=== PATIENT | female | born 1960 | race Caucasian/White ===

== ENCOUNTER 2016-10-28 07:22 | Emergency (ER) | payer OTHER, BC ==
[2016-10-28] MEDS ORDERED: HYDROmorphone 0.5 MG/0.5 ML Syringe IVPUSH ONE (07:39)
[2016-10-28] MEDS ORDERED: Metoclopramide 10 MG/2 ML SDV IVPUSH ONE (07:40)
[2016-10-28] MEDS ORDERED: Hyoscyamine 0.125 MG Tab.SL SL ONE (07:41)
[2016-10-28] MEDS ORDERED: Hyoscyamine 0.125 MG Tab.SL ONE (07:42)
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
[2016-10-28] MEDS ORDERED: Sodium Chloride 0.9% 1,000 ML IV SCH (07:45)
--- NOTE | 2016-10-28 09:36 | US ---
Limited abdominal ultrasound: Multiple real-time images of the upper right abdomen were obtained. Comparison: No previous abdominal imaging. Technologist's note: Limited exam due to bowel gas Findings: Liver is slightly echogenic possibly due to mild fatty infiltration. No discrete focal abnormality is seen within the liver. Pancreas is incompletely seen. Visualized portions of the pancreas are unremarkable. Gallbladder not well seen, questionable gallstones/sludge balls noted within the dependent portion of the gallbladder. Gallbladder wall appears prominent in size but gallbladder is not well distended. No biliary duct dilatation is appreciated. Right kidney shows no hydronephrosis or mass. Right kidney has a length of 11.3 cm. Impression: 1. Suboptimal evaluation of the gallbladder. Questionable wall thickening and gallstones/sludge balls. No biliary duct dilatation is seen. Follow-up study would be helpful after adequate 8 hours of fasting to further evaluate. 2. Questionable fatty infiltration within the liver. Diagnostic code #3
--- NOTE | 2016-10-28 10:47 | CR ---
Abdomen: Supine view of the abdomen was obtained. Comparison: No previous abdominal x-ray. Inferior vena cava filter is identified. Bowel gas pattern is normal. No abnormal calcifications or discrete soft tissue abnormality is seen. Bony structures are unremarkable. Impression: 1. Inferior vena cava filter. 2. Supine abdominal x-ray is otherwise unremarkable. Diagnostic code #2
[2016-10-28 11:21] VITALS: BP 99/63
== END 2016-10-28 10:32 | disposition home or self-care (01) ==
LOC: JD.ED 07:22
DX: K80.20 Calculus of gallbladder without cholecystitis without obstruction (principal); Z88.1 Allergy status to other antibiotic agents; Z79.899 Other long term (current) drug therapy; K21.9 Gastro-esophageal reflux disease without esophagitis
CPT/HCPCS: 36415; 74000; 76705; 80053; 81001; 83690; 85025; 85610; 86140; 96361; 96374; 96375; 99284; A9270; J1170; J2765; J7040

== ENCOUNTER 2017-07-01 07:42 | Emergency (ER) | payer OTHER, BC ==
[2017-07-01 07:58] VITALS: BP 147/97
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
== END 2017-07-01 08:35 | disposition home or self-care (01) ==
LOC: JD.ED 07:42
DX: K80.50 Calculus of bile duct without cholangitis or cholecystitis without obstruction (principal); Z88.1 Allergy status to other antibiotic agents
CPT/HCPCS: 99284

== ENCOUNTER 2021-04-12 12:09 | Emergency (ER) | payer BC, OTHER ==
[2021-04-12] MEDS ORDERED: Albuterol 6.7 GM Inhaler INH ONE (12:45)
[2021-04-12] MEDS ORDERED: Ondansetron 4 MG Tab.DIS PO ONE (12:45)
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
[2021-04-12 13:33] VITALS: BP 136/91; PULSE 63
--- NOTE | 2021-04-12 13:55 | CR ---
Chest: Frontal view of the chest was obtained. Comparison: Prior chest x-ray of 09/07/16. Right hemidiaphragm is elevated which is a chronic finding. Heart size and mediastinum are normal. Previous right shoulder surgery is seen. Patchy areas of increased density are seen within both sides of the chest. Bony structures show nothing acute. Impression: 1. Chronic findings as noted above. 2. Patchy increased density within both sides of the chest compatible with mild COVID pneumonia. Diagnostic code #3
== END 2021-04-12 15:14 | disposition home or self-care (01) ==
LOC: JD.ED 12:09
DX: U07.1 COVID-19 (principal); Z88.1 Allergy status to other antibiotic agents; Z86.718 Personal history of other venous thrombosis and embolism
CPT/HCPCS: 71045; 94640; 99284; A9270; 99283

== ENCOUNTER 2021-04-14 21:41 | Inpatient (IN) | payer OTHER ==
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
[2021-04-15] MEDS ORDERED: Doxycycline 100 MG Cap PO ONE (06:53)
[2021-04-15] MEDS ORDERED: Dexamethasone 4 MG/ML 5 ML MDV IV ONE (06:53)
[2021-04-15] MEDS ORDERED: REMDESIVIR 200 MG in Sodium Chloride 0.9% 250 ML IV ONE ×2 (06:57→07:30)
[2021-04-15] MEDS ORDERED: cefTRIAXone 2 GM in Sodium Chloride 0.9% 100 ML IV SCH (07:00)
--- NOTE | 2021-04-15 07:41 | CR ---
Chest: Frontal view of the chest was obtained. Comparison: Prior chest x-ray of 04/12/21 and 09/07/16. Blunting of the right lateral costophrenic angle is noted which is stable. Slight areas of increased density are noted within both lungs which appear fairly stable from most recent exam most likely representing mild chronic COVID pneumonia. Slight increased atelectasis is seen within the right midlung. Lungs otherwise are clear. Heart size is normal. Upper mediastinum is within normal limits. Bony structure shows prior surgery within the right shoulder. Impression: 1. Stable areas of probable COVID pneumonia within both lungs. 2. Slight increased atelectasis within the right midlung. 3. Other findings as noted above which are chronic. Diagnostic code #3
[2021-04-15] MEDS ORDERED: Ondansetron 4 MG/2 ML SDV IVPUSH PRN (08:34)
[2021-04-15] MEDS ORDERED: Docusate Sodium 100 MG Cap PO PRN (08:44)
[2021-04-15] MEDS ORDERED: Potassium Chloride 20 MEQ Tab.ER PO ONE (08:56)
[2021-04-15] MEDS ORDERED: Azithromycin 500 MG in Sodium Chloride 0.9% 250 ML IV SCH (09:00)
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
[2021-04-15] MEDS: Zinc Sulfate 220 MG Cap PO SCH (09:58)
[2021-04-15] MEDS: Famotidine 20 MG Tab PO SCH ×2 (09:59→20:10)
[2021-04-15] MEDS: Enoxaparin 40 MG/0.4 ML Syringe SUBCUT SCH (09:59)
[2021-04-15] MEDS ORDERED: Benzonatate 100 MG Cap PO PRN (10:38)
[2021-04-15] MEDS: Albuterol 6.7 GM Inhaler INH PRN ×2 (14:47→20:25)
[2021-04-15] MEDS: guaiFENesin 600 MG Tab.ER PO SCH ×2 (16:37→20:10)
[2021-04-15] MEDS: Cholecalciferol (Vitamin D3) 5,000 UNIT Cap PO SCH (16:37)
[2021-04-15] MEDS: Doxycycline 100 MG in Sodium Chloride 0.9% 100 ML IV SCH (20:10)
[2021-04-16] MEDS: cefTRIAXone 2 GM in Sodium Chloride 0.9% 100 ML IV SCH (06:15)
[2021-04-16] MEDS: REMDESIVIR 100 MG in Sodium Chloride 0.9% 100 ML IV SCH (06:54)
[2021-04-16] MEDS ORDERED: cefTRIAXone 2 GM in Sodium Chloride 0.9% 100 ML IV SCH (07:00)
[2021-04-16] MEDS: Albuterol 6.7 GM Inhaler INH PRN ×3 (07:55→20:11)
--- NOTE | 2021-04-16 08:49 | PCM.PN ---
- General Info Date of Service: 04/16/21 Admission Dx/Problem (Free Text): Admission Diagnosis/Problem Admission Diagnosis/Problem Hypoxia Functional Status: Reports: Pain Controlled, Tolerating Diet, Ambulating, Urinating, Incentive Spirometry, Other (Acapella ). Denies: New Symptoms - Review of Systems General: Reports: Weakness. Denies: Fever, Fatigue, Malaise, Chills HEENT: Reports: No Symptoms. Denies: Headaches, Sore Throat Pulmonary: Reports: Shortness of Breath, Pleuritic Chest Pain, Cough, Sputum. Denies: Wheezing Cardiovascular: Reports: Dyspnea on Exertion. Denies: Chest Pain, Palpitations, Edema Gastrointestinal: Reports: No Symptoms. Denies: Abdominal Pain, Constipation, Diarrhea, Nausea, Vomiting Genitourinary: Reports: No Symptoms. Denies: Pain Musculoskeletal: Reports: No Symptoms Skin: Reports: No Symptoms Neurological: Reports: Weakness. Denies: Confusion, Dizziness, Headache, Numbness, Pre-Existing Deficit, Syncope, Tingling, Difficulty Walking, Gait Disturbance Psychiatric: Reports: No Symptoms - Patient Data Vitals - Most Recent: Last Vital Signs Temp 98.4 F 04/16/21 06:12 Pulse 87 04/16/21 06:12 Resp 22 H 04/16/21 06:12 BP 109/54 L 04/16/21 06:12 Pulse Ox 92 L 04/16/21 07:56 Weight - Most Recent: 209 lb 12.8 oz I&O - Last 24 Hours: Intake & Output 04/15/21 04/16/21 04/16/21 22:59 06:59 14:59 Intake Total 750 898 Output Total 1000 Balance -250 898 Lab Results Last 24 Hours: Laboratory Results - last 24 hr 04/15/21 04/15/21 04/15/21 Range/Units 02:18 07:23 07:23 WBC (3.98-10.04) K/mm3 RBC (3.98-5.22) M/mm3 Hgb (11.2-15.7) gm/dl Hct (34.1-44.9) % MCV (79.4-94.8) fl MCH (25.6-32.2) pg MCHC (32.2-35.5) g/dl RDW Std Deviation (36.4-46.3) fL Plt Count (182-369) K/mm3 MPV (9.4-12.3) fl Neut % (Auto) (34.0-71.1) % Lymph % (Auto) (19.3-51.7) % Coffey % (Auto) (4.7-12.5) % Eos % (Auto) (0.7-5.8) Baso % (Auto) (0.1-1.2) % Neut # (Auto) (1.56-6.13) K/mm3 Lymph # (Auto) (1.18-3.74) K/mm3 Coffey # (Auto) (0.24-0.36) K/mm3 Eos # (Auto) (0.04-0.36) K/mm3 Baso # (Auto) (0.01-0.08) K/mm3 Manual Slide Review Sodium (136-145) mEq/L Potassium (3.5-5.1) mEq/L Chloride (98-107) mEq/L Carbon Dioxide (21-32) mEq/L Anion Gap (5-15) BUN (7-18) mg/dL Creatinine (0.55-1.02) mg/dL Est Cr Clr Drug Dosing mL/min Estimated GFR (MDRD) (>60) mL/min BUN/Creatinine Ratio (14-18) Glucose (70-99) mg/dL Lactic Acid (0.4-2.0) mmol/L Calcium (8.5-10.1) mg/dL Magnesium 2.1 (1.8-2.4) mg/dL Total Bilirubin (0.2-1.0) mg/dL AST (15-37) U/L ALT (14-59) U/L Alkaline Phosphatase (46-116) U/L C-Reactive Protein (<1.0) mg/dL Total Protein (6.4-8.2) g/dl Albumin (3.4-5.0) g/dl Globulin gm/dL Albumin/Globulin Ratio (1-2) Vitamin D 25-Hydroxy 28.3 L (30.0-100.0) ng/ml Procalcitonin 0.12 H ng/mL 04/15/21 04/16/21 04/16/21 Range/Units 07:30 04:52 04:52 WBC 17.24 H (3.98-10.04) K/mm3 RBC 3.80 L (3.98-5.22) M/mm3 Hgb 11.9 (11.2-15.7) gm/dl Hct 36.3 (34.1-44.9) % MCV 95.5 H (79.4-94.8) fl MCH 31.3 (25.6-32.2) pg MCHC 32.8 (32.2-35.5) g/dl RDW Std Deviation 45.1 (36.4-46.3) fL Plt Count 147 L (182-369) K/mm3 MPV 10.7 (9.4-12.3) fl Neut % (Auto) 29.6 L (34.0-71.1) % Lymph % (Auto) 66.9 H (19.3-51.7) % Coffey % (Auto) 3.0 L (4.7-12.5) % Eos % (Auto) 0.1 L (0.7-5.8) Baso % (Auto) 0.1 (0.1-1.2) % Neut # (Auto) 5.10 (1.56-6.13) K/mm3 Lymph # (Auto) 11.54 H (1.18-3.74) K/mm3 Coffey # (Auto) 0.52 H (0.24-0.36) K/mm3 Eos # (Auto) 0.01 L (0.04-0.36) K/mm3 Baso # (Auto) 0.01 (0.01-0.08) K/mm3 Manual Slide Review Abnormal smear Sodium 134 L (136-145) mEq/L Potassium 4.3 (3.5-5.1) mEq/L Chloride 100 (98-107) mEq/L Carbon Dioxide 26 (21-32) mEq/L Anion Gap 12.3 (5-15) BUN 17 (7-18) mg/dL Creatinine 0.7 (0.55-1.02) mg/dL Est Cr Clr Drug Dosing 72.88 mL/min Estimated GFR (MDRD) > 60 (>60) mL/min BUN/Creatinine Ratio 24.3 H (14-18) Glucose 119 H (70-99) mg/dL Lactic Acid 1.0 (0.4-2.0) mmol/L Calcium 10.4 H (8.5-10.1) mg/dL Magnesium 2.0 (1.8-2.4) mg/dL Total Bilirubin 0.4 (0.2-1.0) mg/dL AST 25 (15-37) U/L ALT 30 (14-59) U/L Alkaline Phosphatase 60 (46-116) U/L C-Reactive Protein 20.6 H* (<1.0) mg/dL Total Protein 6.4 (6.4-8.2) g/dl Albumin 2.7 L (3.4-5.0) g/dl Globulin 3.7 gm/dL Albumin/Globulin Ratio 0.7 L (1-2) Vitamin D 25-Hydroxy (30.0-100.0) ng/ml Procalcitonin ng/mL Med Orders - Current: Current Medications Acetaminophen (Acetaminophen 325 Mg Tab) 650 mg PO Q4H PRN PRN Reason: Pain (Mild 1-3)/fever Albuterol (Albuterol 6.7 Gm Inhaler) 0 gm INH Q2H PRN PRN Reason: SOB/Wheezing Last Admin: 04/16/21 07:55 Dose: 2 puff Documented by: Albuterol/Ipratropium (Albuterol/Ipratropium 3.0-0.5 Mg/3 Ml Neb Soln) 3 ml NEB QIDRT PRN PRN Reason: Shortness Of Breath/wheezing Benzonatate (Benzonatate 100 Mg Cap) 100 mg PO TID PRN PRN Reason: Cough Cholecalciferol (Cholecalciferol (Vitamin D3) 5,000 Unit Cap) 5,000 unit PO DAILY [facility] Last Admin: 04/15/21 16:37 Dose: 5,000 unit Documented by: Dexamethasone (Dexamethasone 4 Mg Tab) 6 mg PO DAILY [facility] Stop: 04/24/21 09:01 Docusate Sodium (Docusate Sodium 100 Mg Cap) 100 mg PO Q12H PRN PRN Reason: Constipation Enoxaparin Sodium (Enoxaparin 40 Mg/0.4 Ml Syringe) 40 mg SUBCUT DAILY [facility] Last Admin: 04/15/21 09:59 Dose: 40 mg Documented by: Famotidine (Famotidine 20 Mg Tab) 20 mg PO BID [facility] Last Admin: 04/15/21 20:10 Dose: 20 mg Documented by: Guaifenesin (Guaifenesin 600 Mg Tab.Er) 600 mg PO BID [facility] Last Admin: 04/15/21 20:10 Dose: 600 mg Documented by: Remdesivir 100 mg/ Sodium (Chloride) 100 mls @ 100 mls/hr IV Q24H [facility] Stop: 04/19/21 08:29 Last Admin: 04/16/21 06:54 Dose: 100 mls/hr Documented by: Doxycycline Hyclate 100 mg/ (Sodium Chloride) 100 mls @ 100 mls/hr IV Q12HR [facility] Stop: 04/20/21 09:59 Last Admin: 04/15/21 20:10 Dose: 100 mls/hr Documented by: Ceftriaxone Sodium 2 gm/ (Sodium Chloride) 100 mls @ 200 mls/hr IV Q24H [facility] Stop: 04/20/21 07:29 Last Admin: 04/16/21 06:15 Dose: 200 mls/hr Documented by: Ondansetron HCl (Ondansetron 4 Mg/2 Ml Sdv) 4 mg IVPUSH Q4H PRN PRN Reason: Nausea Zinc Sulfate (Zinc Sulfate 220 Mg Cap) 220 mg PO DAILY [facility] Last Admin: 04/15/21 09:58 Dose: 220 mg Documented by: Discontinued Medications Dexamethasone (Dexamethasone 4 Mg/Ml 5 Ml Mdv) 6 mg IV ONETIME ONE Stop: 04/15/21 06:54 Last Admin: 04/15/21 08:00 Dose: 6 mg Documented by: Dexamethasone (Dexamethasone 4 Mg Tab) 6 mg PO DAILY [facility] Stop: 04/24/21 09:01 Doxycycline Hyclate (Doxycycline 100 Mg Cap) 100 mg PO ONETIME ONE Stop: 04/15/21 06:54 Last Admin: 04/15/21 07:54 Dose: 100 mg Documented by: Ceftriaxone Sodium 2 gm/ (Sodium Chloride) 100 mls @ 200 mls/hr IV Q24H [facility] Last Admin: 04/15/21 08:23 Dose: 200 mls/hr Documented by: Remdesivir 200 mg/ Sodium (Chloride) 250 mls @ 250 mls/hr IV ONETIME ONE Stop: 04/15/21 08:29 Last Admin: 04/15/21 08:53 Dose: 250 mls/hr Documented by: Ceftriaxone Sodium 2 gm/ (Sodium Chloride) 100 mls @ 200 mls/hr IV Q24H [facility] Stop: 04/20/21 07:29 Azithromycin 500 mg/ Sodium (Chloride) 250 mls @ 250 mls/hr IV Q24H [facility] Stop: 04/17/21 09:59 Last Admin: 04/15/21 23:52 Dose: Not Given Documented by: Potassium Chloride (Potassium Chloride 20 Meq Tab.Er) 40 meq PO ONETIME ONE Stop: 04/15/21 08:57 Last Admin: 04/15/21 09:58 Dose: 40 meq Documented by: - Exam Quality Assessment: Supplemental Oxygen (1L), DVT Prophylaxis. No: Urine Catheter General: Alert, Oriented, Cooperative, No Acute Distress HEENT: Pupils Equal, Pupils Reactive, Mucous Membr. Moist/Esko Neck: Supple, Trachea Midline Lungs: Clear to Auscultation, Normal Respiratory Effort, Decreased Breath Sounds. No: Crackles, Rhonchi, Wheezing Cardiovascular: Regular Rate, Regular Rhythm GI/Abdominal Exam: Normal Bowel Sounds, Soft, Non-Tender, No Distention (Female) Exam: Deferred Back Exam: Normal Inspection, Full Range of Motion Extremities: Normal Inspection, Normal Range of Motion, Non-Tender, No Pedal Edema, Normal Capillary Refill Peripheral Pulses: 2+: Radial (L), Radial (R), Dorsalis Pedis (L), Dorsalis Pedis (R) Skin: Warm, Dry, Intact Neurological: No New Focal Deficit Psy/Mental Status: Alert, Normal Affect, Normal Mood - Patient Data Lab Results Last 24 hrs: Laboratory Results - last 24 hr 04/15/21 04/15/21 04/15/21 Range/Units 02:18 07:23 07:23 WBC (3.98-10.04) K/mm3 RBC (3.98-5.22) M/mm3 Hgb (11.2-15.7) gm/dl Hct (34.1-44.9) % MCV (79.4-94.8) fl MCH (25.6-32.2) pg MCHC (32.2-35.5) g/dl RDW Std Deviation (36.4-46.3) fL Plt Count (182-369) K/mm3 MPV (9.4-12.3) fl Neut % (Auto) (34.0-71.1) % Lymph % (Auto) (19.3-51.7) % Coffey % (Auto) (4.7-12.5) % Eos % (Auto) (0.7-5.8) Baso % (Auto) (0.1-1.2) % Neut # (Auto) (1.56-6.13) K/mm3 Lymph # (Auto) (1.18-3.74) K/mm3 Coffey # (Auto) (0.24-0.36) K/mm3 Eos # (Auto) (0.04-0.36) K/mm3 Baso # (Auto) (0.01-0.08) K/mm3 Manual Slide Review Sodium (136-145) mEq/L Potassium (3.5-5.1) mEq/L Chloride (98-107) mEq/L Carbon Dioxide (21-32) mEq/L Anion Gap (5-15) BUN (7-18) mg/dL Creatinine (0.55-1.02) mg/dL Est Cr Clr Drug Dosing mL/min Estimated GFR (MDRD) (>60) mL/min BUN/Creatinine Ratio (14-18) Glucose (70-99) mg/dL Lactic Acid (0.4-2.0) mmol/L Calcium (8.5-10.1) mg/dL Magnesium 2.1 (1.8-2.4) mg/dL Total Bilirubin (0.2-1.0) mg/dL AST (15-37) U/L ALT (14-59) U/L Alkaline Phosphatase (46-116) U/L C-Reactive Protein (<1.0) mg/dL Total Protein (6.4-8.2) g/dl Albumin (3.4-5.0) g/dl Globulin gm/dL Albumin/Globulin Ratio (1-2) Vitamin D 25-Hydroxy 28.3 L (30.0-100.0) ng/ml Procalcitonin 0.12 H ng/mL 04/15/21 04/16/21 04/16/21 Range/Units 07:30 04:52 04:52 WBC 17.24 H (3.98-10.04) K/mm3 RBC 3.80 L (3.98-5.22) M/mm3 Hgb 11.9 (11.2-15.7) gm/dl Hct 36.3 (34.1-44.9) % MCV 95.5 H (79.4-94.8) fl MCH 31.3 (25.6-32.2) pg MCHC 32.8 (32.2-35.5) g/dl RDW Std Deviation 45.1 (36.4-46.3) fL Plt Count 147 L (182-369) K/mm3 MPV 10.7 (9.4-12.3) fl Neut % (Auto) 29.6 L (34.0-71.1) % Lymph % (Auto) 66.9 H (19.3-51.7) % Coffey % (Auto) 3.0 L (4.7-12.5) % Eos % (Auto) 0.1 L (0.7-5.8) Baso % (Auto) 0.1 (0.1-1.2) % Neut # (Auto) 5.10 (1.56-6.13) K/mm3 Lymph # (Auto) 11.54 H (1.18-3.74) K/mm3 Coffey # (Auto) 0.52 H (0.24-0.36) K/mm3 Eos # (Auto) 0.01 L (0.04-0.36) K/mm3 Baso # (Auto) 0.01 (0.01-0.08) K/mm3 Manual Slide Review Abnormal smear Sodium 134 L (136-145) mEq/L Potassium 4.3 (3.5-5.1) mEq/L Chloride 100 (98-107) mEq/L Carbon Dioxide 26 (21-32) mEq/L Anion Gap 12.3 (5-15) BUN 17 (7-18) mg/dL Creatinine 0.7 (0.55-1.02) mg/dL Est Cr Clr Drug Dosing 72.88 mL/min Estimated GFR (MDRD) > 60 (>60) mL/min BUN/Creatinine Ratio 24.3 H (14-18) Glucose 119 H (70-99) mg/dL Lactic Acid 1.0 (0.4-2.0) mmol/L Calcium 10.4 H (8.5-10.1) mg/dL Magnesium 2.0 (1.8-2.4) mg/dL Total Bilirubin 0.4 (0.2-1.0) mg/dL AST 25 (15-37) U/L ALT 30 (14-59) U/L Alkaline Phosphatase 60 (46-116) U/L C-Reactive Protein 20.6 H* (<1.0) mg/dL Total Protein 6.4 (6.4-8.2) g/dl Albumin 2.7 L (3.4-5.0) g/dl Globulin 3.7 gm/dL Albumin/Globulin Ratio 0.7 L (1-2) Vitamin D 25-Hydroxy (30.0-100.0) ng/ml Procalcitonin ng/mL Result Diagrams: 04/16/21 04:52 04/16/21 04:52 Sepsis Event Note - Evaluation Sepsis Screening Result: Sepsis Risk - Focused Exam Vital Signs: Vital Signs Temp Pulse Resp BP Pulse Ox Pulse Ox 04/16/21 07:56 92 L 04/16/21 06:12 98.4 F 87 22 H 109/54 L 91 L - Problem List & Annotations (1) Leukocytosis SNOMED Code(s): 189631639, 334951652 Code(s): D72.829 - ELEVATED WHITE BLOOD CELL COUNT, UNSPECIFIED Status: Acute Priority: High Current Visit: Yes Qualifiers: Leukocytosis type: unspecified Qualified Code(s): D72.829 - Elevated white blood cell count, unspecified (2) Elevated C-reactive protein SNOMED Code(s): 643669201823735 Code(s): R79.82 - ELEVATED C-REACTIVE PROTEIN (CRP) Status: Acute Priority: High Current Visit: Yes (3) Hypokalemia SNOMED Code(s): 90714826 Code(s): E87.6 - HYPOKALEMIA Status: Acute Priority: High Current Visit: Yes (4) Hypoxia SNOMED Code(s): 427203573 Code(s): R09.02 - HYPOXEMIA Status: Acute Priority: High Current Visit: Yes (5) Acute respiratory failure SNOMED Code(s): 28215067 Code(s): J96.00 - ACUTE RESPIRATORY FAILURE, UNSP W HYPOXIA OR HYPERCAPNIA Status: Acute Priority: High Current Visit: Yes Qualifiers: Respiratory failure complication: hypoxia Qualified Code(s): J96.01 - Acute respiratory failure with hypoxia (6) COVID-19 SNOMED Code(s): 556875364 Code(s): U07.1 - COVID-19 Status: Acute Priority: High Current Visit: Yes (7) Pneumonia SNOMED Code(s): 902153366 Code(s): J18.9 - PNEUMONIA, UNSPECIFIED ORGANISM Status: Acute Priority: High Current Visit: Yes Qualifiers: Pneumonia type: due to unspecified organism Laterality: bilateral Lung location: unspecified part of lung Qualified Code(s): J18.9 - Pneumonia, unspecified organism (8) Thrombocytopenia SNOMED Code(s): 583658492 Code(s): D69.6 - THROMBOCYTOPENIA, UNSPECIFIED Status: Acute Priority: Medium Current Visit: Yes (9) Hypoalbuminemia SNOMED Code(s): 495519117 Code(s): E88.09 - OTH DISORDERS OF PLASMA-PROTEIN METABOLISM, NEC Status: Acute Priority: Medium Current Visit: Yes (10) COVID-19 vaccine series completed SNOMED Code(s): 599350342, 320259223 Code(s): Z92.29 - PERSONAL HISTORY OF OTHER DRUG THERAPY Status: Chronic Priority: High Current Visit: Yes (11) Generalized weakness SNOMED Code(s): 39722553 Code(s): R53.1 - WEAKNESS Status: Acute Priority: High Current Visit: Yes (12) Vitamin D deficiency SNOMED Code(s): 77455544 Code(s): E55.9 - VITAMIN D DEFICIENCY, UNSPECIFIED Status: Acute Priority: Medium Current Visit: Yes - Problem List Review Problem List Initiated/Reviewed/Updated: Yes - My Orders Last 24 Hours: My Active Orders 04/15/21 08:43 Patient Status [ADT] Routine 04/15/21 08:44 Height and Weight [RC] 06 Intake and Output [RC] 04,16 Oxygen Therapy [RC] ASDIRECTED Pulse Oximetry [RC] CONTINUOUS RT Chest Physiotherapy [RC] ASDIRECTED RT Incentive Spirometry [RC] ASDIRECTED Up With Assistance [RC] 08,12,16,20 Vital Signs [RC] 0400,1000,1600,2200 Consult to Case Management/Hop Sorter [CONS] Routine Acetaminophen [TylenoL] 650 mg PO Q4H PRN Albuterol [Proventil HFA] See Dose Instructions INH Q2H PRN Albuterol/Ipratropium [DuoNeb 3.0-0.5 MG/3 ML] 3 ml NEB QIDRT PRN Docusate Sodium [Colace] 100 mg PO Q12H PRN Isolation [COMM] Routine Resuscitation Status Routine 04/15/21 08:45 RT Aerosol Therapy [RC] ASDIRECTED 04/15/21 08:46 OT Evaluation and Treatment [CONS] Routine PT Evaluation and Treatment [CONS] Routine Respiratory Care Assess and Treatment [CONS] Routine 04/15/21 08:51 Positioning, Patient [RC] QSHIFT 04/15/21 09:00 Enoxaparin [Lovenox] 40 mg SUBCUT DAILY Famotidine [Pepcid] 20 mg PO BID Zinc Sulfate [Zincate] 220 mg PO DAILY 04/15/21 09:18 Consult to Electronic Equipment Repairer [CONS] Routine 04/15/21 10:38 Benzonatate [Tessalon Perles] 100 mg PO TID PRN 04/15/21 10:45 guaiFENesin [Mucinex] 600 mg PO BID 04/15/21 11:06 CPAP Noctural Home [RT BiPAP/CPAP] [RC] ASDIRECTED 04/15/21 15:00 Cholecalciferol (Vitamin D3) [Vitamin D3] 5,000 unit PO DAILY 04/15/21 21:00 Doxycycline [Vibramycin] 100 mg Sodium Chloride 0.9% [Normal Saline] 100 ml IV Q12HR 04/16/21 07:00 cefTRIAXone [Rocephin] 2 gm Sodium Chloride 0.9% [Normal Saline] 100 ml IV Q24H 04/16/21 07:30 Remdesivir 100 mg Sodium Chloride 0.9% [Normal Saline] 100 ml IV Q24H 04/16/21 09:00 dexAMETHasone 6 mg PO DAILY 04/17/21 05:11 C-REACTIVE PROTEIN [CHEM] AM CBC WITH AUTO DIFF [HEME] AM COMPREHENSIVE METABOLIC PN,CMP [CHEM] AM DD [D-DIMER QUANTITATIVE] [COAG] Q48H MAGNESIUM [CHEM] AM 04/18/21 05:11 C-REACTIVE PROTEIN [CHEM] AM CBC WITH AUTO DIFF [HEME] AM COMPREHENSIVE METABOLIC PN,CMP [CHEM] AM MAGNESIUM [CHEM] AM 04/19/21 05:11 C-REACTIVE PROTEIN [CHEM] AM CBC WITH AUTO DIFF [HEME] AM COMPREHENSIVE METABOLIC PN,CMP [CHEM] AM DD [D-DIMER QUANTITATIVE] [COAG] Q48H MAGNESIUM [CHEM] AM 04/21/21 05:11 DD [D-DIMER QUANTITATIVE] [COAG] Q48H - Assessment Assessment:: Assessment - day of admission 04/15/2021 * 60-year-old female who 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 * History of PE secondary to an accident. Recurrent bronchitis, GERD, chronic abdominal pain, anemia, status post vena cava filter in 2001 * Had been seen in the ED on 04/12/2021 for Covid and was sent home with steroids, albuterol MDI, Zofran for nausea and incentive spirometry. * For the patient's symptoms began on 04/09/2021 and she tested positive on 04/10/2021. * She reportedly completed her Pfizer vaccination series for Covid pneumonia. * On her prior visit she was noting significant nausea and vomiting, which she states has improved. * She is now complaining of intermittent shortness of breath. * Saturations were okay on arrival however when the patient fell asleep in the room she was noted to have saturations in the upper 80s. * 12-lead EKG is obtained showing a sinus rhythm with a RSR noted in V1-normal v ariant. * Labs are obtained showing: * WBC of 17.27. * Hemoglobin is 12.2. Hematocrit 37.1. * She is macrocytic. * Platelets are low at 149,000. * Neutrophils are low at 31.3%. Lymphocytes are high at 64.6%. * D-dimer 0.48. * Sodium is 134. * Potassium 3.4. * Chloride 99. * Carbon dioxide 30. * Anion gap 8.4. * BUN is 14. Creatinine 0.9. GFR greater than 60. * Glucose 113. * Calcium 10.2. * Bilirubin 0.5. * AST is 21, ALT 26, alkaline phosphatase 59. * LDH is 158. * Troponin less than 0.017. * CRP is elevated at 15.9. * Protein is 6.4. * Albumin is low at 2.9. * Ferritin is 1361. * Chest x-ray is obtained and interpreted by Dr. Gastelum, radiologist as: * 1. Stable area of probable Covid pneumonia within both lungs. * 2. Slight increased atelectasis within the right midlung. * 3. Other findings as noted above which are chronic. * Provider attempted to wean patient off oxygen but was unable. * Given her elevated white count she started on Rocephin and doxycycline. * She is also given dexamethasone and remdesivir for her Covid symptoms. * Patient subsequently admitted to the hospital inpatient on telemetry for management of her COVID-19 pneumonia. 04/16/2021 60-year-old female admitted to the floor for COVID-19 pneumonia treatment. Patient has completed her full Pfizer vaccination series. Overall patient is doing quite well. She did note that her cough is becoming more productive. She does have pleuritic chest pain with coughing but otherwise feels pretty good. She has been up ambulating but it does note that she has had some weakness. She is currently on 1/2 L of oxygen with saturations in the low 90s. WBC today was 17.24. This is likely elevated due to steroid use. Hemoglobin 11.9. Platelet remained stable at 147,000. Neutrophils are low at 29.6. Lymphocytes are elevated at 66.9. Sodium remains low at 134. Potassium is 4.3. Chloride 100. Carbon dioxide 26. Anion gap 12.3. BUN is 17. Creatinine 0.7. GFR greater than 60. Glucose is 119. Lactic acid yesterday was 1.0. Calcium is 10.4. Magnesium 2.0. Bilirubin 0.4. AST is 25, ALT 30, alkaline phosphatase 60. CRP is up to 20.6. Protein is 6.4. Albumin is down to 2.7. Vitamin D yesterday was 28.3. Procalcitonin on admission was 0.12. We will continue current treatment plan with remdesivir and dexamethasone. We will continue to attempt to wean patient from oxygen. She has been proning and utilizing her I-S and Acapella. She would likely require a few more days pending continued improvement with oxygen wean. We will continue antibiotic therapy as her white count remains elevated and her CRP is going up. - Plan Plan:: COVID-19 Elevated C-reactive protein Hypoxia Acute respiratory failure COVID-19 vaccine series completed Generalized weakness * O2 as needed with goal saturations of 88 to 95% * Consult RT * I-S/Acapella * Remdesivir - day 2/5 * Dexamethasone - day 11/02 (started outpatient) * Famotidine 20 mg twice daily * Zinc supplementation * Prone whenever able * Ambulate around room * Airborne/contact precautions * PT/OT * CM/social work * As needed albuterol MDI * As needed DuoNebs * Daily labs * Every 48 hour D-dimer * Telemetry * Continuous pulse oximetry * Mucinex BID * Tessalon Perles TID PRN for cough Leukocytosis Pneumonia * Leukocytosis may be related to steroid although cannot rule out pneumonia * Blood cultures pending * 2 g daily Rocephin - day 08/30 * 100mg doxycycline BID - day 08/30 * Monitor labs * Other orders as mentioned above Hypokalemia * Supplement * Re-check labs tomorrow Vitamin D deficiency * Start 5,000 units supplementation daily * PCP follow-up Thrombocytopenia * Monitor labs * Likely 2/2 COVID as above * Continue Lovenox for now. May need to discontinue if platelet levels continue to drop Hypoalbuminemia * 2/2 COVID above * Electronic Equipment Repairer consultation Code status: Full Code PCP: Dr. Spain DVT prophylaxis: Lovenox Disposition: Patient mated to medical floor for management of COVID-19 pneumonia with possible secondary bacterial pneumonia. Patient failed outpatient treatment for Covid. Likely length of stay 4 to 5 days pending improvement
[2021-04-16] MEDS ORDERED: Dexamethasone 4 MG Tab PO SCH (09:00)
[2021-04-16] MEDS: Enoxaparin 40 MG/0.4 ML Syringe SUBCUT SCH (09:34)
[2021-04-16] MEDS: Dexamethasone 4 MG Tab PO SCH (09:35)
[2021-04-16] MEDS: Famotidine 20 MG Tab PO SCH ×2 (09:35→20:24)
[2021-04-16] MEDS: Zinc Sulfate 220 MG Cap PO SCH (09:35)
[2021-04-16] MEDS: Cholecalciferol (Vitamin D3) 5,000 UNIT Cap PO SCH (09:35)
[2021-04-16] MEDS: guaiFENesin 600 MG Tab.ER PO SCH ×2 (09:35→20:24)
[2021-04-16] MEDS: Doxycycline 100 MG in Sodium Chloride 0.9% 100 ML IV SCH ×2 (09:36→20:24)
[2021-04-16] MEDS ORDERED: Ondansetron 4 MG/2 ML SDV IVPUSH PRN (13:59)
[2021-04-16] MEDS: Acetaminophen 325 MG Tab PO PRN (15:17)
[2021-04-17] MEDS: cefTRIAXone 2 GM in Sodium Chloride 0.9% 100 ML IV SCH (06:35)
[2021-04-17] MEDS: REMDESIVIR 100 MG in Sodium Chloride 0.9% 100 ML IV SCH (07:16)
[2021-04-17] MEDS: Albuterol 6.7 GM Inhaler INH PRN ×3 (07:29→21:09)
--- NOTE | 2021-04-17 09:35 | CR ---
Chest: Portable view of the chest was obtained. Comparison: Prior chest x-ray of 04/15/21. Heart size and mediastinum are within normal limits. Stable blunting within the right costophrenic angle is noted. Patchy areas of increased density are seen within both sides of the chest. Linear densities remain which are compatible with additional atelectasis. Prior right shoulder surgery is seen. Impression: 1. Stable parenchymal densities within both sides of the chest. These findings are most likely due to COVID pneumonia. 2. Mild areas of atelectasis are also seen. 3. Other findings as noted above. Diagnostic code #3
--- NOTE | 2021-04-17 09:37 | PCM.PN ---
- General Info Date of Service: 04/17/21 Admission Dx/Problem (Free Text): Admission Diagnosis/Problem Admission Diagnosis/Problem Hypoxia Functional Status: Reports: Pain Controlled, Tolerating Diet, Ambulating, Urinating, Incentive Spirometry, Other (Acapella ). Denies: New Symptoms - Review of Systems General: Reports: Weakness, Fatigue. Denies: Fever, Malaise, Chills HEENT: Reports: No Symptoms. Denies: Headaches, Sore Throat Pulmonary: Reports: Shortness of Breath, Pleuritic Chest Pain, Cough, Sputum. Denies: Wheezing Cardiovascular: Reports: Dyspnea on Exertion. Denies: Chest Pain, Palpitations, Edema Gastrointestinal: Reports: No Symptoms. Denies: Abdominal Pain, Constipation, Diarrhea, Nausea, Vomiting Genitourinary: Reports: No Symptoms. Denies: Pain Musculoskeletal: Reports: No Symptoms Skin: Reports: No Symptoms. Denies: Cyanosis Neurological: Reports: No Symptoms. Denies: Confusion, Dizziness, Headache, Numbness, Pre-Existing Deficit, Seizure, Syncope, Tingling, Difficulty Walking, Gait Disturbance Psychiatric: Reports: No Symptoms - Patient Data Vitals - Most Recent: Last Vital Signs Temp 97.9 F 04/17/21 04:57 Pulse 77 04/17/21 09:08 Resp 18 04/17/21 09:06 BP 113/74 04/17/21 09:06 Pulse Ox 89 L 04/17/21 09:08 Weight - Most Recent: 210 lb 3.2 oz I&O - Last 24 Hours: Intake & Output 04/16/21 04/17/21 04/17/21 22:59 06:59 14:59 Intake Total 1520 897 Output Total 1200 Balance 320 897 Lab Results Last 24 Hours: Laboratory Results - last 24 hr 04/17/21 04/17/21 04/17/21 Range/Units 04:47 04:47 04:47 WBC 35.88 H (3.98-10.04) K/mm3 RBC 4.33 (3.98-5.22) M/mm3 Hgb 13.4 D (11.2-15.7) gm/dl Hct 41.5 (34.1-44.9) % MCV 95.8 H (79.4-94.8) fl MCH 30.9 (25.6-32.2) pg MCHC 32.3 (32.2-35.5) g/dl RDW Std Deviation 45.8 (36.4-46.3) fL Plt Count 228 D (182-369) K/mm3 MPV 10.4 (9.4-12.3) fl Neut % (Auto) 20.4 L (34.0-71.1) % Lymph % (Auto) 77.2 H (19.3-51.7) % Moffat % (Auto) 2.0 L (4.7-12.5) % Eos % (Auto) 0 L (0.7-5.8) Baso % (Auto) 0.1 (0.1-1.2) % Neut # (Auto) 7.33 H (1.56-6.13) K/mm3 Lymph # (Auto) 27.70 H (1.18-3.74) K/mm3 Moffat # (Auto) 0.70 H (0.24-0.36) K/mm3 Eos # (Auto) 0.00 L (0.04-0.36) K/mm3 Baso # (Auto) 0.04 (0.01-0.08) K/mm3 Manual Slide Review Abnormal smear D-Dimer, Quantitative 0.44 (0.19-0.50) mg/L Sodium 140 (136-145) mEq/L Potassium 4.3 (3.5-5.1) mEq/L Chloride 103 (98-107) mEq/L Carbon Dioxide 26 (21-32) mEq/L Anion Gap 15.3 H (5-15) BUN 17 (7-18) mg/dL Creatinine 0.7 (0.55-1.02) mg/dL Est Cr Clr Drug Dosing 72.88 mL/min Estimated GFR (MDRD) > 60 (>60) mL/min BUN/Creatinine Ratio 24.3 H (14-18) Glucose 124 H (70-99) mg/dL Calcium 10.7 H (8.5-10.1) mg/dL Magnesium 2.1 (1.8-2.4) mg/dL Total Bilirubin 0.5 (0.2-1.0) mg/dL AST 19 (15-37) U/L ALT 35 (14-59) U/L Alkaline Phosphatase 67 (46-116) U/L C-Reactive Protein 16.8 H* (<1.0) mg/dL Total Protein 7.2 (6.4-8.2) g/dl Albumin 3.0 L (3.4-5.0) g/dl Globulin 4.2 gm/dL Albumin/Globulin Ratio 0.7 L (1-2) Luis Results Last 24 Hours: Microbiology 04/15/21 07:30 Blood Culture - Preliminary Blood - Venous - Lab Draw 04/15/21 07:23 Blood Culture - Preliminary Blood - Venous Med Orders - Current: Current Medications Acetaminophen (Acetaminophen 325 Mg Tab) 650 mg PO Q4H PRN PRN Reason: Pain (Mild 1-3)/fever Last Admin: 04/16/21 15:17 Dose: 650 mg Documented by: Albuterol (Albuterol 6.7 Gm Inhaler) 0 gm INH Q2H PRN PRN Reason: SOB/Wheezing Last Admin: 04/17/21 07:29 Dose: 2 puff Documented by: Albuterol/Ipratropium (Albuterol/Ipratropium 3.0-0.5 Mg/3 Ml Neb Soln) 3 ml NEB QIDRT PRN PRN Reason: Shortness Of Breath/wheezing Benzonatate (Benzonatate 100 Mg Cap) 100 mg PO TID PRN PRN Reason: Cough Cholecalciferol (Cholecalciferol (Vitamin D3) 5,000 Unit Cap) 5,000 unit PO DAILY [facility] Last Admin: 04/16/21 09:35 Dose: 5,000 unit Documented by: Dexamethasone (Dexamethasone 4 Mg Tab) 6 mg PO DAILY [facility] Stop: 04/24/21 09:01 Last Admin: 04/16/21 09:35 Dose: 6 mg Documented by: Docusate Sodium (Docusate Sodium 100 Mg Cap) 100 mg PO Q12H PRN PRN Reason: Constipation Enoxaparin Sodium (Enoxaparin 40 Mg/0.4 Ml Syringe) 40 mg SUBCUT DAILY [facility] Last Admin: 04/16/21 09:34 Dose: 40 mg Documented by: Famotidine (Famotidine 20 Mg Tab) 20 mg PO BID [facility] Last Admin: 04/16/21 20:24 Dose: 20 mg Documented by: Guaifenesin (Guaifenesin 600 Mg Tab.Er) 600 mg PO BID [facility] Last Admin: 04/16/21 20:24 Dose: 600 mg Documented by: Guaifenesin/Phenylephrine HCl (Guaifenesin/Dextromethorphan 100-10 Mg/5 Ml Soln 5 Ml Cup) 10 ml PO TID@0700,1400,2100 [facility] Remdesivir 100 mg/ Sodium (Chloride) 100 mls @ 100 mls/hr IV Q24H [facility] Stop: 04/19/21 08:29 Last Admin: 04/17/21 07:16 Dose: 100 mls/hr Documented by: Doxycycline Hyclate 100 mg/ (Sodium Chloride) 100 mls @ 100 mls/hr IV Q12HR [facility] Stop: 04/19/21 21:59 Last Admin: 04/16/21 20:24 Dose: 100 mls/hr Documented by: Ceftriaxone Sodium 2 gm/ (Sodium Chloride) 100 mls @ 200 mls/hr IV Q24H [facility] Stop: 04/19/21 07:29 Last Admin: 04/17/21 06:35 Dose: 200 mls/hr Documented by: Ondansetron HCl (Ondansetron 4 Mg/2 Ml Sdv) 4 mg IVPUSH Q6H PRN PRN Reason: Nausea/Vomiting Zinc Sulfate (Zinc Sulfate 220 Mg Cap) 220 mg PO DAILY [facility] Last Admin: 04/16/21 09:35 Dose: 220 mg Documented by: Discontinued Medications Dexamethasone (Dexamethasone 4 Mg/Ml 5 Ml Mdv) 6 mg IV ONETIME ONE Stop: 04/15/21 06:54 Last Admin: 04/15/21 08:00 Dose: 6 mg Documented by: Dexamethasone (Dexamethasone 4 Mg Tab) 6 mg PO DAILY [facility] Stop: 04/24/21 09:01 Doxycycline Hyclate (Doxycycline 100 Mg Cap) 100 mg PO ONETIME ONE Stop: 04/15/21 06:54 Last Admin: 04/15/21 07:54 Dose: 100 mg Documented by: Ceftriaxone Sodium 2 gm/ (Sodium Chloride) 100 mls @ 200 mls/hr IV Q24H [facility] Last Admin: 04/15/21 08:23 Dose: 200 mls/hr Documented by: Remdesivir 200 mg/ Sodium (Chloride) 250 mls @ 250 mls/hr IV ONETIME ONE Stop: 04/15/21 08:29 Last Admin: 04/15/21 08:53 Dose: 250 mls/hr Documented by: Ceftriaxone Sodium 2 gm/ (Sodium Chloride) 100 mls @ 200 mls/hr IV Q24H [facility] Stop: 04/20/21 07:29 Azithromycin 500 mg/ Sodium (Chloride) 250 mls @ 250 mls/hr IV Q24H [facility] Stop: 04/17/21 09:59 Last Admin: 04/15/21 23:52 Dose: Not Given Documented by: Ondansetron HCl (Ondansetron 4 Mg/2 Ml Sdv) 4 mg IVPUSH Q4H PRN PRN Reason: Nausea Potassium Chloride (Potassium Chloride 20 Meq Tab.Er) 40 meq PO ONETIME ONE Stop: 04/15/21 08:57 Last Admin: 04/15/21 09:58 Dose: 40 meq Documented by: - Exam Quality Assessment: Supplemental Oxygen, DVT Prophylaxis General: Alert, Oriented, Cooperative, No Acute Distress HEENT: Pupils Equal, Pupils Reactive, Mucous Membr. Moist/[place] Neck: Supple, Trachea Midline Lungs: Normal Respiratory Effort, Decreased Breath Sounds Cardiovascular: Regular Rate, Regular Rhythm GI/Abdominal Exam: Normal Bowel Sounds, Soft, Non-Tender, No Distention (Female) Exam: Deferred Back Exam: Normal Inspection, Full Range of Motion Extremities: Normal Inspection, Normal Range of Motion, Non-Tender, No Pedal Edema Peripheral Pulses: 2+: Radial (L), Radial (R), Dorsalis Pedis (L), Dorsalis Pedis (R) Skin: Warm, Dry, Intact Neurological: No New Focal Deficit Psy/Mental Status: Alert, Normal Affect, Normal Mood - Patient Data Lab Results Last 24 hrs: Laboratory Results - last 24 hr 04/17/21 04/17/21 04/17/21 Range/Units 04:47 04:47 04:47 WBC 35.88 H (3.98-10.04) K/mm3 RBC 4.33 (3.98-5.22) M/mm3 Hgb 13.4 D (11.2-15.7) gm/dl Hct 41.5 (34.1-44.9) % MCV 95.8 H (79.4-94.8) fl MCH 30.9 (25.6-32.2) pg MCHC 32.3 (32.2-35.5) g/dl RDW Std Deviation 45.8 (36.4-46.3) fL Plt Count 228 D (182-369) K/mm3 MPV 10.4 (9.4-12.3) fl Neut % (Auto) 20.4 L (34.0-71.1) % Lymph % (Auto) 77.2 H (19.3-51.7) % Moffat % (Auto) 2.0 L (4.7-12.5) % Eos % (Auto) 0 L (0.7-5.8) Baso % (Auto) 0.1 (0.1-1.2) % Neut # (Auto) 7.33 H (1.56-6.13) K/mm3 Lymph # (Auto) 27.70 H (1.18-3.74) K/mm3 Moffat # (Auto) 0.70 H (0.24-0.36) K/mm3 Eos # (Auto) 0.00 L (0.04-0.36) K/mm3 Baso # (Auto) 0.04 (0.01-0.08) K/mm3 Manual Slide Review Abnormal smear D-Dimer, Quantitative 0.44 (0.19-0.50) mg/L Sodium 140 (136-145) mEq/L Potassium 4.3 (3.5-5.1) mEq/L Chloride 103 (98-107) mEq/L Carbon Dioxide 26 (21-32) mEq/L Anion Gap 15.3 H (5-15) BUN 17 (7-18) mg/dL Creatinine 0.7 (0.55-1.02) mg/dL Est Cr Clr Drug Dosing 72.88 mL/min Estimated GFR (MDRD) > 60 (>60) mL/min BUN/Creatinine Ratio 24.3 H (14-18) Glucose 124 H (70-99) mg/dL Calcium 10.7 H (8.5-10.1) mg/dL Magnesium 2.1 (1.8-2.4) mg/dL Total Bilirubin 0.5 (0.2-1.0) mg/dL AST 19 (15-37) U/L ALT 35 (14-59) U/L Alkaline Phosphatase 67 (46-116) U/L C-Reactive Protein 16.8 H* (<1.0) mg/dL Total Protein 7.2 (6.4-8.2) g/dl Albumin 3.0 L (3.4-5.0) g/dl Globulin 4.2 gm/dL Albumin/Globulin Ratio 0.7 L (1-2) Result Diagrams: 04/17/21 04:47 04/17/21 04:47 Luis Results Last 24 hrs: Microbiology 04/15/21 07:30 Blood Culture - Preliminary Blood - Venous - Lab Draw 04/15/21 07:23 Blood Culture - Preliminary Blood - Venous Sepsis Event Note - Evaluation Sepsis Screening Result: No Definite Risk - Focused Exam Vital Signs: Vital Signs Temp Pulse Resp BP Pulse Ox Pulse Ox 04/17/21 09:08 77 89 L 04/17/21 09:06 78 18 113/74 88 L 04/17/21 07:29 94 L 04/17/21 05:48 92 L 04/17/21 04:57 97.9 F 78 20 110/70 88 L - Problem List & Annotations (1) Leukocytosis SNOMED Code(s): 862315724, 014171833 Code(s): D72.829 - ELEVATED WHITE BLOOD CELL COUNT, UNSPECIFIED Status: Acute Priority: High Current Visit: Yes Qualifiers: Leukocytosis type: unspecified Qualified Code(s): D72.829 - Elevated white blood cell count, unspecified (2) Elevated C-reactive protein SNOMED Code(s): 752360140682563 Code(s): R79.82 - ELEVATED C-REACTIVE PROTEIN (CRP) Status: Acute Priority: High Current Visit: Yes (3) Hypokalemia SNOMED Code(s): 68657278 Code(s): E87.6 - HYPOKALEMIA Status: Resolved Priority: High Current Visit: Yes (4) Hypoxia SNOMED Code(s): 281914167 Code(s): R09.02 - HYPOXEMIA Status: Acute Priority: High Current Visit: Yes (5) Acute respiratory failure SNOMED Code(s): 41634313 Code(s): J96.00 - ACUTE RESPIRATORY FAILURE, UNSP W HYPOXIA OR HYPERCAPNIA Status: Acute Priority: High Current Visit: Yes Qualifiers: Respiratory failure complication: hypoxia Qualified Code(s): J96.01 - Acute respiratory failure with hypoxia (6) COVID-19 SNOMED Code(s): 052635506 Code(s): U07.1 - COVID-19 Status: Acute Priority: High Current Visit: Yes (7) Pneumonia SNOMED Code(s): 231650750 Code(s): J18.9 - PNEUMONIA, UNSPECIFIED ORGANISM Status: Acute Priority: High Current Visit: Yes Qualifiers: Pneumonia type: due to unspecified organism Laterality: bilateral Lung location: unspecified part of lung Qualified Code(s): J18.9 - Pneumonia, unspecified organism (8) Thrombocytopenia SNOMED Code(s): 693205843 Code(s): D69.6 - THROMBOCYTOPENIA, UNSPECIFIED Status: Resolved Priority: Medium Current Visit: Yes (9) Hypoalbuminemia SNOMED Code(s): 459431107 Code(s): E88.09 - OTH DISORDERS OF PLASMA-PROTEIN METABOLISM, NEC Status: Acute Priority: Medium Current Visit: Yes (10) COVID-19 vaccine series completed SNOMED Code(s): 081564468, 769074482 Code(s): Z92.29 - PERSONAL HISTORY OF OTHER DRUG THERAPY Status: Chronic Priority: High Current Visit: Yes (11) Generalized weakness SNOMED Code(s): 74583503 Code(s): R53.1 - WEAKNESS Status: Acute Priority: High Current Visit: Yes (12) Vitamin D deficiency SNOMED Code(s): 28719843 Code(s): E55.9 - VITAMIN D DEFICIENCY, UNSPECIFIED Status: Acute Priority: Medium Current Visit: Yes - Problem List Review Problem List Initiated/Reviewed/Updated: Yes - My Orders Last 24 Hours: My Active Orders 04/16/21 09:00 dexAMETHasone 6 mg PO DAILY 04/16/21 13:59 Ondansetron [Zofran] 4 mg IVPUSH Q6H PRN 04/17/21 08:43 Chest 1V Frontal [CR] Routine 04/17/21 14:00 Dextromethorphan/guaiFENesin [Robitussin DM] 10 ml PO TID@0700,1400,2100 04/18/21 05:11 C-REACTIVE PROTEIN [CHEM] AM CBC WITH AUTO DIFF [HEME] AM COMPREHENSIVE METABOLIC PN,CMP [CHEM] AM MAGNESIUM [CHEM] AM 04/19/21 05:11 C-REACTIVE PROTEIN [CHEM] AM CBC WITH AUTO DIFF [HEME] AM COMPREHENSIVE METABOLIC PN,CMP [CHEM] AM DD [D-DIMER QUANTITATIVE] [COAG] Q48H MAGNESIUM [CHEM] AM 04/21/21 05:11 DD [D-DIMER QUANTITATIVE] [COAG] Q48H - Assessment Assessment:: Assessment - day of admission 04/15/2021 * 60-year-old female who presents to our ED in the very jacker hours of 04/15/2021 with continued Covid symptoms. * History of PE secondary to an accident. Recurrent bronchitis, GERD, chronic abdominal pain, anemia, status post vena cava filter in 2001 * Had been seen in the ED on 04/12/2021 for Covid and was sent home with morena mckee Zofran for nausea and incentive spirometry. * For the patient's symptoms began on 04/09/2021 and she tested positive on 04/10/2021. * She reportedly completed her Pfizer vaccination series for Covid pneumonia. * On her prior visit she was noting significant nausea and vomiting, which she states has improved. * She is now complaining of intermittent shortness of breath. * Saturations were okay on arrival however when the patient fell asleep in the room she was noted to have saturations in the upper 80s. * 12-lead EKG is obtained showing a sinus rhythm with a RSR noted in V1-normal variant. * Labs are obtained showing: * WBC of 17.27. * Hemoglobin is 12.2. Hematocrit 37.1. * She is macrocytic. * Platelets are low at 149,000. * Neutrophils are low at 31.3%. Lymphocytes are high at 64.6%. * D-dimer 0.48. * Sodium is 134. * Potassium 3.4. * Chloride 99. * Carbon dioxide 30. * Anion gap 8.4. * BUN is 14. Creatinine 0.9. GFR greater than 60. * Glucose 113. * Calcium 10.2. * Bilirubin 0.5. * AST is 21, ALT 26, alkaline phosphatase 59. * LDH is 158. * Troponin less than 0.017. * CRP is elevated at 15.9. * Protein is 6.4. * Albumin is low at 2.9. * Ferritin is 1361. * Chest x-ray is obtained and interpreted by Dr. Gastelum, radiologist as: * 1. Stable area of probable Covid pneumonia within both lungs. * 2. Slight increased atelectasis within the right midlung. * 3. Other findings as noted above which are chronic. * Provider attempted to wean patient off oxygen but was unable. * Given her elevated white count she started on Rocephin and doxycycline. * She is also given dexamethasone and remdesivir for her Covid symptoms. * Patient subsequently admitted to the hospital inpatient on telemetry for management of her COVID-19 pneumonia. 04/16/2021 60-year-old female admitted to the floor for COVID-19 pneumonia treatment. Patient has completed her full Pfizer vaccination series. Overall patient is doing quite well. She did note that her cough is becoming more productive. She does have pleuritic chest pain with coughing but otherwise feels pretty good. She has been up ambulating but it does note that she has had some weakness. She is currently on 1/2 L of oxygen with saturations in the low 90s. WBC today was 17.24. This is likely elevated due to steroid use. Hemoglobin 11.9. Platelet remained stable at 147,000. Neutrophils are low at 29.6. Lymphocytes are elevated at 66.9. Sodium remains low at 134. Potassium is 4.3. Chloride 100. Carbon dioxide 26. Anion gap 12.3. BUN is 17. Creatinine 0.7. GFR greater than 60. Glucose is 119. Lactic acid yesterday was 1.0. Calcium is 10.4. Magnesium 2.0. Bilirubin 0.4. AST is 25, ALT 30, alkaline phosphatase 60. CRP is up to 20.6. Protein is 6.4. Albumin is down to 2.7. Vitamin D yesterday was 28.3. Procalcitonin on admission was 0.12. We will continue current treatment plan with remdesivir and dexamethasone. We will continue to attempt to wean patient from oxygen. She has been proning and utilizing her I-S and Acapella. She would likely require a few more days pending continued improvement with oxygen wean. We will continue antibiotic therapy as her white count remains elevated and her CRP is going up. 04/17/2021 This is a 60-year-old female admitted to the floor for COVID-19 pneumonia treatment. She reports a cough with her breathing exercises today but overall she is doing okay. She states she definitely feels worse today than yesterday and that she is more weak. Remains on half a liter of oxygen with saturations in the upper 80s. WBC today jumped to 35.88. Hemoglobin is 13.4. Platelet 228,000. Smear shows leukocytosis but no toxic granulation or band neutrophils. D-dimer remained stable at 0.44. Sodium is 140. Potassium 4.3. Chloride 103. Carbon dioxide 26. Anion gap is 15.3. BUN is 17. Creatinine 0.7. GFR greater than 60. Glucose 124. Calcium 10.7. Magnesium 2.1. Total bilirubin 0.5. AST 90, ALT 35, alkaline phosphatase 67. CRP is down to 16.8. Albumin is 3.0. Patient is on Rocephin and doxycycline already follow as noted her procalcitonin on admission was 0.12. Blood cultures have been negative thus fa r. Suspect leukocytosis is secondary to steroid. Repeat portable chest x-ray obtained today shows stable to improving bilateral infiltrates consistent with COVID-19 pneumonia. We will continue current treatment plan with antibiotics, dexamethasone, and remdesivir. Anticipate discharge in a couple days once completed remdesivir treatment. - Plan Plan:: COVID-19 Elevated C-reactive protein Hypoxia Acute respiratory failure COVID-19 vaccine series completed Generalized weakness * O2 as needed with goal saturations of 88 to 95% * Consult RT * I-S/Acapella * Remdesivir - day 09/27 * Dexamethasone - day 12/02 (started outpatient) * Famotidine 20 mg twice daily * Zinc supplementation * Prone whenever able * Ambulate around room * Airborne/contact precautions * PT/OT * CM/social work * As needed albuterol MDI * As needed DuoNebs * Daily labs * Every 48 hour D-dimer * Telemetry * Continuous pulse oximetry * Mucinex BID * Tessalon Perles TID PRN for cough Leukocytosis Pneumonia * Leukocytosis may be related to steroid although cannot rule out pneumonia * Blood cultures negative thus far * 2 g daily Rocephin - day 09/27 * 100mg doxycycline BID - day 09/27 * Monitor labs * Other orders as mentioned above Hypokalemia ,resolved * Monitor labs Vitamin D deficiency * Start 5,000 units supplementation daily * PCP follow-up Thrombocytopenia, resolved * Monitor labs * Likely 2/2 COVID as above Hypoalbuminemia * 2/2 COVID above * Rehab Manager consultation Code status: Full Code PCP: Dr. Spain DVT prophylaxis: Lovenox Disposition: Patient mated to medical floor for management of COVID-19 pneumonia with possible secondary bacterial pneumonia. Patient failed outpatient treatment for Covid. Likely length of stay 4 to 5 days total pending im provement.
[2021-04-17] MEDS: Doxycycline 100 MG in Sodium Chloride 0.9% 100 ML IV SCH ×2 (09:44→20:27)
[2021-04-17] MEDS: Zinc Sulfate 220 MG Cap PO SCH (09:44)
[2021-04-17] MEDS: Enoxaparin 40 MG/0.4 ML Syringe SUBCUT SCH (09:44)
[2021-04-17] MEDS: Cholecalciferol (Vitamin D3) 5,000 UNIT Cap PO SCH (09:44)
[2021-04-17] MEDS: Dexamethasone 4 MG Tab PO SCH (09:44)
[2021-04-17] MEDS: guaiFENesin 600 MG Tab.ER PO SCH ×2 (09:44→20:25)
[2021-04-17] MEDS: Famotidine 20 MG Tab PO SCH ×2 (09:44→20:25)
[2021-04-17] MEDS: guaiFENesin/Dextromethorphan 100-10 MG/5 ML Soln 5 ML Cup PO SCH ×2 (13:26→20:25)
[2021-04-18] MEDS: Albuterol 6.7 GM Inhaler INH PRN (05:40)
[2021-04-18] MEDS: guaiFENesin/Dextromethorphan 100-10 MG/5 ML Soln 5 ML Cup PO SCH ×3 (07:05→21:36)
[2021-04-18] MEDS: cefTRIAXone 2 GM in Sodium Chloride 0.9% 100 ML IV SCH (07:05)
--- NOTE | 2021-04-18 07:51 | PCM.PN ---
<Zaid Guaman - Last Filed: 04/18/21 10:31> - General Info Date of Service: 04/18/21 Admission Dx/Problem (Free Text): Admission Diagnosis/Problem Admission Diagnosis/Problem Hypoxia Functional Status: Reports: Pain Controlled, Tolerating Diet, Ambulating, Urinating, Incentive Spirometry, Other (acapella ). Denies: New Symptoms - Review of Systems General: Reports: Weakness (improving ). Denies: Fever, Fatigue, Malaise, Chills HEENT: Reports: No Symptoms. Denies: Headaches, Sore Throat Pulmonary: Reports: Shortness of Breath, Cough (mostly after utilizing IS/Acapella ). Denies: Pleuritic Chest Pain Cardiovascular: Reports: Dyspnea on Exertion. Denies: Chest Pain, Palpitations Gastrointestinal: Reports: No Symptoms. Denies: Abdominal Pain, Constipation, Diarrhea, Nausea, Vomiting Genitourinary: Reports: No Symptoms. Denies: Pain Musculoskeletal: Reports: No Symptoms Skin: Reports: No Symptoms. Denies: Cyanosis Neurological: Reports: No Symptoms. Denies: Confusion, Dizziness, Headache, Numbness, Pre-Existing Deficit, Seizure, Syncope, Tingling, Difficulty Walking, Gait Disturbance Psychiatric: Reports: No Symptoms - Patient Data Vitals - Most Recent: Last Vital Signs Temp 98.1 F 04/18/21 06:56 Pulse 92 04/18/21 06:56 Resp 20 04/18/21 06:56 BP 145/87 H 04/18/21 06:56 Pulse Ox 90 L 04/18/21 06:56 Weight - Most Recent: 95.345 kg I&O - Last 24 Hours: Intake & Output 04/17/21 04/18/21 04/18/21 22:59 06:59 14:59 Intake Total 2031 Output Total 1850 1400 Balance 181 -1400 Lab Results Last 24 Hours: Laboratory Results - last 24 hr 04/18/21 04/18/21 Range/Units 05:10 05:10 WBC 29.86 H (3.98-10.04) K/mm3 RBC 4.06 (3.98-5.22) M/mm3 Hgb 12.6 (11.2-15.7) gm/dl Hct 38.9 (34.1-44.9) % MCV 95.8 H (79.4-94.8) fl MCH 31.0 (25.6-32.2) pg MCHC 32.4 (32.2-35.5) g/dl RDW Std Deviation 45.4 (36.4-46.3) fL Plt Count 254 (182-369) K/mm3 MPV 10.2 (9.4-12.3) fl Neut % (Auto) 28.3 L (34.0-71.1) % Lymph % (Auto) 69.0 H (19.3-51.7) % [place] % (Auto) 2.3 L (4.7-12.5) % Eos % (Auto) 0 L (0.7-5.8) Baso % (Auto) 0.1 (0.1-1.2) % Neut # (Auto) 8.46 H (1.56-6.13) K/mm3 Lymph # (Auto) 20.59 H (1.18-3.74) K/mm3 [place] # (Auto) 0.68 H (0.24-0.36) K/mm3 Eos # (Auto) 0.01 L (0.04-0.36) K/mm3 Baso # (Auto) 0.03 (0.01-0.08) K/mm3 Manual Slide Review Abnormal smear Sodium 137 (136-145) mEq/L Potassium 4.4 (3.5-5.1) mEq/L Chloride 102 (98-107) mEq/L Carbon Dioxide 26 (21-32) mEq/L Anion Gap 13.4 (5-15) BUN 16 (7-18) mg/dL Creatinine 0.7 (0.55-1.02) mg/dL Est Cr Clr Drug Dosing 72.88 mL/min Estimated GFR (MDRD) > 60 (>60) mL/min BUN/Creatinine Ratio 22.9 H (14-18) Glucose 116 H (70-99) mg/dL Calcium 10.5 H (8.5-10.1) mg/dL Magnesium 1.9 (1.8-2.4) mg/dL Total Bilirubin 0.5 (0.2-1.0) mg/dL AST 15 (15-37) U/L ALT 33 (14-59) U/L Alkaline Phosphatase 64 (46-116) U/L C-Reactive Protein 9.6 H* (<1.0) mg/dL Total Protein 6.5 (6.4-8.2) g/dl Albumin 2.8 L (3.4-5.0) g/dl Globulin 3.7 gm/dL Albumin/Globulin Ratio 0.8 L (1-2) Med Orders - Current: Current Medications Acetaminophen (Acetaminophen 325 Mg Tab) 650 mg PO Q4H PRN PRN Reason: Pain (Mild 1-3)/fever Last Admin: 04/16/21 15:17 Dose: 650 mg Documented by: Albuterol (Albuterol 6.7 Gm Inhaler) 0 gm INH Q2H PRN PRN Reason: SOB/Wheezing Last Admin: 04/18/21 05:40 Dose: 2 puff Documented by: Albuterol/Ipratropium (Albuterol/Ipratropium 3.0-0.5 Mg/3 Ml Neb Soln) 3 ml NEB QIDRT PRN PRN Reason: Shortness Of Breath/wheezing Benzonatate (Benzonatate 100 Mg Cap) 100 mg PO TID PRN PRN Reason: Cough Cholecalciferol (Cholecalciferol (Vitamin D3) 5,000 Unit Cap) 5,000 unit PO DAILY [facility] Last Admin: 04/17/21 09:44 Dose: 5,000 unit Documented by: Dexamethasone (Dexamethasone 4 Mg Tab) 6 mg PO DAILY [facility] Stop: 04/24/21 09:01 Last Admin: 04/17/21 09:44 Dose: 6 mg Documented by: Docusate Sodium (Docusate Sodium 100 Mg Cap) 100 mg PO Q12H PRN PRN Reason: Constipation Enoxaparin Sodium (Enoxaparin 40 Mg/0.4 Ml Syringe) 40 mg SUBCUT DAILY [facility] Last Admin: 04/17/21 09:44 Dose: 40 mg Documented by: Famotidine (Famotidine 20 Mg Tab) 20 mg PO BID [facility] Last Admin: 04/17/21 20:25 Dose: 20 mg Documented by: Guaifenesin (Guaifenesin 600 Mg Tab.Er) 600 mg PO BID [facility] Last Admin: 04/17/21 20:25 Dose: 600 mg Documented by: Guaifenesin/Phenylephrine HCl (Guaifenesin/Dextromethorphan 100-10 Mg/5 Ml Soln 5 Ml Cup) 10 ml PO TID@0700,1400,2100 [facility] Last Admin: 04/18/21 07:05 Dose: 10 ml Documented by: Remdesivir 100 mg/ Sodium (Chloride) 100 mls @ 100 mls/hr IV Q24H [facility] Stop: 04/19/21 08:29 Last Admin: 04/17/21 07:16 Dose: 100 mls/hr Documented by: Doxycycline Hyclate 100 mg/ (Sodium Chloride) 100 mls @ 100 mls/hr IV Q12HR [facility] Stop: 04/19/21 21:59 Last Admin: 04/17/21 20:27 Dose: 100 mls/hr Documented by: Ceftriaxone Sodium 2 gm/ (Sodium Chloride) 100 mls @ 200 mls/hr IV Q24H [facility] Stop: 04/19/21 07:29 Last Admin: 04/18/21 07:05 Dose: 200 mls/hr Documented by: Ondansetron HCl (Ondansetron 4 Mg/2 Ml Sdv) 4 mg IVPUSH Q6H PRN PRN Reason: Nausea/Vomiting Zinc Sulfate (Zinc Sulfate 220 Mg Cap) 220 mg PO DAILY [facility] Last Admin: 04/17/21 09:44 Dose: 220 mg Documented by: Discontinued Medications Dexamethasone (Dexamethasone 4 Mg/Ml 5 Ml Mdv) 6 mg IV ONETIME ONE Stop: 04/15/21 06:54 Last Admin: 04/15/21 08:00 Dose: 6 mg Documented by: Dexamethasone (Dexamethasone 4 Mg Tab) 6 mg PO DAILY [facility] Stop: 04/24/21 09:01 Doxycycline Hyclate (Doxycycline 100 Mg Cap) 100 mg PO ONETIME ONE Stop: 04/15/21 06:54 Last Admin: 04/15/21 07:54 Dose: 100 mg Documented by: Ceftriaxone Sodium 2 gm/ (Sodium Chloride) 100 mls @ 200 mls/hr IV Q24H [facility] Last Admin: 04/15/21 08:23 Dose: 200 mls/hr Documented by: Remdesivir 200 mg/ Sodium (Chloride) 250 mls @ 250 mls/hr IV ONETIME ONE Stop: 04/15/21 08:29 Last Admin: 04/15/21 08:53 Dose: 250 mls/hr Documented by: Ceftriaxone Sodium 2 gm/ (Sodium Chloride) 100 mls @ 200 mls/hr IV Q24H [facility] Stop: 04/20/21 07:29 Azithromycin 500 mg/ Sodium (Chloride) 250 mls @ 250 mls/hr IV Q24H [facility] Stop: 04/17/21 09:59 Last Admin: 04/15/21 23:52 Dose: Not Given Documented by: Ondansetron HCl (Ondansetron 4 Mg/2 Ml Sdv) 4 mg IVPUSH Q4H PRN PRN Reason: Nausea Potassium Chloride (Potassium Chloride 20 Meq Tab.Er) 40 meq PO ONETIME ONE Stop: 04/15/21 08:57 Last Admin: 04/15/21 09:58 Dose: 40 meq Documented by: - Exam Quality Assessment: Supplemental Oxygen (0.5L), DVT Prophylaxis. No: Urine Cat heter General: Alert, Oriented, Cooperative, No Acute Distress HEENT: Pupils Equal, Pupils Reactive, Mucous Membr. Moist/[place] Neck: Supple, Trachea Midline Lungs: Normal Respiratory Effort, Decreased Breath Sounds, Crackles Cardiovascular: Regular Rate, Regular Rhythm GI/Abdominal Exam: Normal Bowel Sounds, Soft, Non-Tender, No Distention (Female) Exam: Deferred Back Exam: Normal Inspection, Full Range of Motion Extremities: Normal Inspection, Normal Range of Motion, Non-Tender, No Pedal Edema, Normal Capillary Refill Peripheral Pulses: 2+: Radial (L), Radial (R), Dorsalis Pedis (L), Dorsalis Pedis (R) Skin: Warm, Dry, Intact Neurological: No New Focal Deficit Psy/Mental Status: Alert, Normal Affect, Normal Mood - Patient Data Lab Results Last 24 hrs: Laboratory Results - last 24 hr 04/18/21 04/18/21 Range/Units 05:10 05:10 WBC 29.86 H (3.98-10.04) K/mm3 RBC 4.06 (3.98-5.22) M/mm3 Hgb 12.6 (11.2-15.7) gm/dl Hct 38.9 (34.1-44.9) % MCV 95.8 H (79.4-94.8) fl MCH 31.0 (25.6-32.2) pg MCHC 32.4 (32.2-35.5) g/dl RDW Std Deviation 45.4 (36.4-46.3) fL Plt Count 254 (182-369) K/mm3 MPV 10.2 (9.4-12.3) fl Neut % (Auto) 28.3 L (34.0-71.1) % Lymph % (Auto) 69.0 H (19.3-51.7) % [place] % (Auto) 2.3 L (4.7-12.5) % Eos % (Auto) 0 L (0.7-5.8) Baso % (Auto) 0.1 (0.1-1.2) % Neut # (Auto) 8.46 H (1.56-6.13) K/mm3 Lymph # (Auto) 20.59 H (1.18-3.74) K/mm3 [place] # (Auto) 0.68 H (0.24-0.36) K/mm3 Eos # (Auto) 0.01 L (0.04-0.36) K/mm3 Baso # (Auto) 0.03 (0.01-0.08) K/mm3 Manual Slide Review Abnormal smear Sodium 137 (136-145) mEq/L Potassium 4.4 (3.5-5.1) mEq/L Chloride 102 (98-107) mEq/L Carbon Dioxide 26 (21-32) mEq/L Anion Gap 13.4 (5-15) BUN 16 (7-18) mg/dL Creatinine 0.7 (0.55-1.02) mg/dL Est Cr Clr Drug Dosing 72.88 mL/min Estimated GFR (MDRD) > 60 (>60) mL/min BUN/Creatinine Ratio 22.9 H (14-18) Glucose 116 H (70-99) mg/dL Calcium 10.5 H (8.5-10.1) mg/dL Magnesium 1.9 (1.8-2.4) mg/dL Total Bilirubin 0.5 (0.2-1.0) mg/dL AST 15 (15-37) U/L ALT 33 (14-59) U/L Alkaline Phosphatase 64 (46-116) U/L C-Reactive Protein 9.6 H* (<1.0) mg/dL Total Protein 6.5 (6.4-8.2) g/dl Albumin 2.8 L (3.4-5.0) g/dl Globulin 3.7 gm/dL Albumin/Globulin Ratio 0.8 L (1-2) Result Diagrams: 04/18/21 05:10 04/18/21 05:10 Sepsis Event Note - Evaluation Sepsis Screening Result: No Definite Risk - Focused Exam Vital Signs: Vital Signs Temp Pulse Resp BP Pulse Ox Pulse Ox 04/18/21 06:56 98.1 F 92 20 145/87 H 90 L 04/18/21 05:41 90 L 04/17/21 20:25 92 L 04/17/21 19:57 98.2 F 76 20 127/63 90 L - Problem List & Annotations (1) Leukocytosis SNOMED Code(s): 192821570, 393109419 Code(s): D72.829 - ELEVATED WHITE BLOOD CELL COUNT, UNSPECIFIED Status: Acute Priority: High Current Visit: Yes Qualifiers: Leukocytosis type: unspecified Qualified Code(s): D72.829 - Elevated white blood cell count, unspecified (2) Elevated C-reactive protein SNOMED Code(s): 869310836186089 Code(s): R79.82 - ELEVATED C-REACTIVE PROTEIN (CRP) Status: Acute Priority: High Current Visit: Yes (3) Hypokalemia SNOMED Code(s): 30666854 Code(s): E87.6 - HYPOKALEMIA Status: Resolved Priority: High Current Visit: Yes (4) Hypoxia SNOMED Code(s): 513457404 Code(s): R09.02 - HYPOXEMIA Status: Acute Priority: High Current Visit: Yes (5) Acute respiratory failure SNOMED Code(s): 00755924 Code(s): J96.00 - ACUTE RESPIRATORY FAILURE, UNSP W HYPOXIA OR HYPERCAPNIA Status: Acute Priority: High Current Visit: Yes Qualifiers: Respiratory failure complication: hypoxia Qualified Code(s): J96.01 - Acute respiratory failure with hypoxia (6) COVID-19 SNOMED Code(s): 152837197 Code(s): U07.1 - COVID-19 Status: Acute Priority: High Current Visit: Yes (7) Pneumonia SNOMED Code(s): 392202325 Code(s): J18.9 - PNEUMONIA, UNSPECIFIED ORGANISM Status: Acute Priority: High Current Visit: Yes Qualifiers: Pneumonia type: due to unspecified organism Laterality: bilateral Lung location: unspecified part of lung Qualified Code(s): J18.9 - Pneumonia, unspecified organism (8) Thrombocytopenia SNOMED Code(s): 087464072 Code(s): D69.6 - THROMBOCYTOPENIA, UNSPECIFIED Status: Resolved Priority: Medium Current Visit: Yes (9) Hypoalbuminemia SNOMED Code(s): 793813884 Code(s): E88.09 - OTH DISORDERS OF PLASMA-PROTEIN METABOLISM, NEC Status: Acute Priority: Medium Current Visit: Yes (10) COVID-19 vaccine series completed SNOMED Code(s): 003216742, 120286134 Code(s): Z92.29 - PERSONAL HISTORY OF OTHER DRUG THERAPY Status: Chronic Priority: High Current Visit: Yes (11) Generalized weakness SNOMED Code(s): 80931810 Code(s): R53.1 - WEAKNESS Status: Acute Priority: High Current Visit: Yes (12) Vitamin D deficiency SNOMED Code(s): 22642725 Code(s): E55.9 - VITAMIN D DEFICIENCY, UNSPECIFIED Status: Acute Pr iority: Medium Current Visit: Yes - Problem List Review Problem List Initiated/Reviewed/Updated: Yes - My Orders Last 24 Hours: My Active Orders 04/17/21 14:00 Dextromethorphan/guaiFENesin [Robitussin DM] 10 ml PO TID@0700,1400,2100 04/19/21 05:11 C-REACTIVE PROTEIN [CHEM] AM CBC WITH AUTO DIFF [HEME] AM COMPREHENSIVE METABOLIC PN,CMP [CHEM] AM DD [D-DIMER QUANTITATIVE] [COAG] Q48H MAGNESIUM [CHEM] AM 04/21/21 05:11 DD [D-DIMER QUANTITATIVE] [COAG] Q48H - Assessment Assessment:: Assessment - day of admission 04/15/2021 * 60-year-old female who presents to our ED in the very geoscientist hours of 04/15/2021 with continued Covid symptoms. * History of PE secondary to an accident. Recurrent bronchitis, GERD, chronic abdominal pain, anemia, status post vena cava filter in 2001 * Had been seen in the ED on 04/12/2021 for Covid and was sent home with steroids, albuterol MDI, Zofran for nausea and incentive spirometry. * For the patient's symptoms began on 04/09/2021 and she tested positive on 04/10/2021. * She reportedly completed her Pfizer vaccination series for Covid pneumonia. * On her prior visit she was noting significant nausea and vomiting, which she states has improved. * She is now complaining of intermittent shortness of breath. * Saturations were okay on arrival however when the patient fell asleep in the room she was noted to have saturations in the upper 80s. * 12-lead EKG is obtained showing a sinus rhythm with a RSR noted in V1-normal variant. * Labs are obtained showing: * WBC of 17.27. * Hemoglobin is 12.2. Hematocrit 37.1. * She is macrocytic. * Platelets are low at 149,000. * Neutrophils are low at 31.3%. Lymphocytes are high at 64.6%. * D-dimer 0.48. * Sodium is 134. * Potassium 3.4. * Chloride 99. * Carbon dioxide 30. * Anion gap 8.4. * BUN is 14. Creatinine 0.9. GFR greater than 60. * Glucose 113. * Calcium 10.2. * Bilirubin 0.5. * AST is 21, ALT 26, alkaline phosphatase 59. * LDH is 158. * Troponin less than 0.017. * CRP is elevated at 15.9. * Protein is 6.4. * Albumin is low at 2.9. * Ferritin is 1361. * Chest x-ray is obtained and interpreted by Dr. Gastelum, radiologist as: * 1. Stable area of probable Covid pneumonia within both lungs. * 2. Slight increased atelectasis within the right midlung. * 3. Other findings as noted above which are chronic. * Provider attempted to wean patient off oxygen but was unable. * Given her elevated white count she started on Rocephin and doxycycline. * She is also given dexamethasone and remdesivir for her Covid symptoms. * Patient subsequently admitted to the hospital inpatient on telemetry for management of her COVID-19 pneumonia. 04/16/2021 60-year-old female admitted to the floor for COVID-19 pneumonia treatment. Arturo shah has completed her full Pfizer vaccination series. Overall patient is doing quite well. She did note that her cough is becoming more productive. She does have pleuritic chest pain with coughing but otherwise feels pretty good. She has been up ambulating but it does note that she has had some weakness. She is currently on 1/2 L of oxygen with saturations in the low 90s. WBC today was 17.24. This is likely elevated due to steroid use. Hemoglobin 11.9. Platelet remained stable at 147,000. Neutrophils are low at 29.6. Lymphocytes are elevated at 66.9. Sodium remains low at 134. Potassium is 4.3. Chloride 100. Carbon dioxide 26. Anion gap 12.3. BUN is 17. Creatinine 0.7. GFR greater than 60. Glucose is 119. Lactic acid yesterday was 1.0. Calcium is 10.4. Magnesium 2.0. Bilirubin 0.4. AST is 25, ALT 30, alkaline phosphatase 60. CRP is up to 20.6. Protein is 6.4. Albumin is down to 2.7. Vitamin D yesterday was 28.3. Procalcitonin on admission was 0.12. We will continue current treatment plan with remdesivir and dexamethasone. We will continue to attempt to wean patient from oxygen. She has been proning and utilizing her I-S and Acapella. She would likely require a few more days pending continued improvement with oxygen wean. We will continue antibiotic therapy as her white count remains elevated and her CRP is going up. 04/17/2021 This is a 60-year-old female admitted to the floor for COVID-19 pneumonia treatment. She reports a cough with her breathing exercises today but overall she is doing okay. She states she definitely feels worse today than yesterday and that she is more weak. Remains on half a liter of oxygen with saturations in the upper 80s. WBC today jumped to 35.88. Hemoglobin is 13.4. Platelet 2 28,000. Smear shows leukocytosis but no toxic granulation or band neutrophils. D-dimer remained stable at 0.44. Sodium is 140. Potassium 4.3. Chloride 103. Carbon dioxide 26. Anion gap is 15.3. BUN is 17. Creatinine 0.7. GFR greater than 60. Glucose 124. Calcium 10.7. Magnesium 2.1. Total bilirubin 0.5. AST 90, ALT 35, alkaline phosphatase 67. CRP is down to 16.8. Albumin is 3.0. Patient is on Rocephin and doxycycline already follow as noted her procalcitonin on admission was 0.12. Blood cultures have been negative thus far. Suspect leukocytosis is secondary to steroid. Repeat portable chest x-ray obtained today shows stable to improving bilateral infiltrates consistent with COVID-19 pneumonia. We will continue current treatment plan with antibiotics, dexamethasone, and remdesivir. Anticipate discharge in a couple days once completed remdesivir treatment. 04/18/2021 60-year-old female admitted to the floor for COVID-19 pneumonia. Overall she continues to do quite well. She continues to have a rather significant productive cough when she utilizes her I-S or Acapella. She was down to 0.5 L of oxygen this morning and we are attempting to wean her off. She continues to receive CIWA remdesivir and dexamethasone. She is also receiving Rocephin and doxycycline. She will complete this treatment tomorrow. From a laboratory standpoint her WBC continues to be elevated although improved at 29.86. Likely steroid related. Platelets are up to 254,000. Neutrophils are 28.3. Smear results show a leukocytosis and lymphocytosis. Sodium is 137. Potassium 4.4. Chloride 102. Carbon dioxide 26. Anion gap is 13.4. BUN is 16. Creatinine 0.7. GFR greater than 60. Calcium is 10.5. Magnesium 1.9. Bilirubin 0.5. AST is 15, ALT 33, alkaline phosphatase 64. CRP is improved to 9.6. Albumin is 2.8. Protein is 6.5. We will continue current treatment plan. Hopeful for discharge tomorrow versus Wednesday pending continued improvement and completion of treatment. - Plan Plan:: COVID-19 Elevated C-reactive protein Hypoxia Acute respiratory failure COVID-19 vaccine series completed Generalized weakness * O2 as needed with goal saturations of 88 to 95% * Consult RT * I-S/Acapella * Remdesivir - day 10/28 * Dexamethasone - day 01/02 (started outpatient) * Famotidine 20 mg twice daily * Zinc supplementation * Prone whenever able * Ambulate around room * Airborne/contact precautions * PT/OT * CM/social work * As needed albuterol MDI * As needed DuoNebs * Daily labs * Every 48 hour D-dimer * Telemetry * Continuous pulse oximetry * Mucinex BID * Tessalon Perles TID PRN for cough Leukocytosis Pneumonia * Leukocytosis may be related to steroid although cannot rule out pneumonia * Blood cultures negative thus far * 2 g daily Rocephin - day 10/28 * 100mg doxycycline BID - day 10/28 * Monitor labs * Other orders as mentioned above Hypokalemia ,resolved * Monitor labs Vitamin D deficiency * Start 5,000 units supplementation daily * PCP follow-up Thrombocytopenia, resolved * Monitor labs * Likely 2/2 COVID as above Hypoalbuminemia * 2/2 COVID above * 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 [place] DVT prophylaxis: Lovenox Disposition: Patient mated to medical floor for management of COVID-19 pneumonia with possible secondary bacterial pneumonia. Patient failed outpatient treatment for Covid. Likely length of stay 4 to 5 days total pending improvement. <Bob Arroyo - Last Filed: 04/19/21 16:39> - Patient Data Vitals - Most Recent: Last Vital Signs Temp 36.7 C 04/19/21 11:02 Pulse 80 04/19/21 09:00 Resp 16 04/19/21 09:00 BP 126/72 04/19/21 09:00 Pulse Ox 89 L 04/19/21 13:59 I&O - Last 24 Hours: Intake & Output 04/19/21 04/19/21 04/19/21 06:59 14:59 22:59 Intake Total 1700 Balance 1700 Lab Results Last 24 Hours: Laboratory Results - last 24 hr 04/19/21 04/19/21 04/19/21 Range/Units 06:44 06:44 06:44 WBC 27.94 H (3.98-10.04) K/mm3 RBC 3.92 L (3.98-5.22) M/mm3 Hgb 12.2 (11.2-15.7) gm/dl Hct 37.5 (34.1-44.9) % MCV 95.7 H (79.4-94.8) fl MCH 31.1 (25.6-32.2) pg MCHC 32.5 (32.2-35.5) g/dl RDW Std Deviation 45.1 (36.4-46.3) fL Plt Count 250 (182-369) K/mm3 MPV 9.6 (9.4-12.3) fl Neut % (Auto) Cancelled Lymph % (Auto) Cancelled [place] % (Auto) Cancelled Eos % (Auto) Cancelled Baso % (Auto) Cancelled Neut # (Auto) Cancelled Lymph # (Auto) Cancelled [place] # (Auto) Cancelled Eos # (Auto) Cancelled Baso # (Auto) Cancelled Neutrophils % (Manual) 24 L (40-60) % Band Neutrophils % 3 (0-10) % Lymphocytes % (Manual) 72 H (20-40) % Atypical Lymphs % 0 % Monocytes % (Manual) 1 L (2-10) % Eosinophils % (Manual) 0 L (0.7-5.8) % Basophils % (Manual) 0 L (0.1-1.2) Manual Slide Review Cancelled Platelet Estimate Adequate Plt Morphology Comment Normal Anisocytosis 1+ slight Macrocytosis 1+ slight RBC Morph Comment Abnormal Percent Retic 0.92 (0.50-1.70) % D-Dimer, Quantitative 0.53 H (0.19-0.50) mg/L Sodium 136 (136-145) mEq/L Potassium 4.2 (3.5-5.1) mEq/L Chloride 102 (98-107) mEq/L Carbon Dioxide 27 (21-32) mEq/L Anion Gap 11.2 (5-15) BUN 14 (7-18) mg/dL Creatinine 0.8 (0.55-1.02) mg/dL Est Cr Clr Drug Dosing 63.77 mL/min Estimated GFR (MDRD) > 60 (>60) mL/min BUN/Creatinine Ratio 17.5 (14-18) Glucose 104 H (70-99) mg/dL Calcium 10.6 H (8.5-10.1) mg/dL Magnesium 1.8 (1.8-2.4) mg/dL Total Bilirubin 0.6 (0.2-1.0) mg/dL AST 14 L (15-37) U/L ALT 29 (14-59) U/L Alkaline Phosphatase 60 (46-116) U/L C-Reactive Protein 8.9 H* (<1.0) mg/dL Total Protein 6.2 L (6.4-8.2) g/dl Albumin 2.7 L (3.4-5.0) g/dl Globulin 3.5 gm/dL Albumin/Globulin Ratio 0.8 L (1-2) Med Orders - Current: Current Medications Acetaminophen (Acetaminophen 325 Mg Tab) 650 mg PO Q4H PRN PRN Reason: Pain (Mild 1-3)/fever Last Admin: 04/18/21 08:06 Dose: 650 mg Documented by: Albuterol (Albuterol 6.7 Gm Inhaler) 0 gm INH Q2H PRN PRN Reason: SOB/Wheezing Last Admin: 04/18/21 05:40 Dose: 2 puff Documented by: Albuterol/Ipratropium (Albuterol/Ipratropium 3.0-0.5 Mg/3 Ml Neb Soln) 3 ml NEB QIDRT PRN PRN Reason: Shortness Of Breath/wheezing Last Admin: 04/18/21 23:05 Dose: 3 ml Documented by: Benzonatate (Benzonatate 100 Mg Cap) 100 mg PO TID PRN PRN Reason: Cough Cholecalciferol (Cholecalciferol (Vitamin D3) 5,000 Unit Cap) 5,000 unit PO DAILY [facility] Last Admin: 04/19/21 09:10 Dose: 5,000 unit Documented by: Dexamethasone (Dexamethasone 4 Mg Tab) 6 mg PO DAILY [facility] Stop: 04/24/21 09:01 Last Admin: 04/19/21 09:10 Dose: 6 mg Documented by: Docusate Sodium (Docusate Sodium 100 Mg Cap) 100 mg PO Q12H PRN PRN Reason: Constipation Enoxaparin Sodium (Enoxaparin 40 Mg/0.4 Ml Syringe) 40 mg SUBCUT DAILY [facility] Last Admin: 04/19/21 09:10 Dose: 40 mg Documented by: Famotidine (Famotidine 20 Mg Tab) 20 mg PO BID [facility] Last Admin: 04/19/21 09:10 Dose: 20 mg Documented by: Guaifenesin (Guaifenesin 600 Mg Tab.Er) 600 mg PO BID [facility] Last Admin: 04/19/21 09:10 Dose: 600 mg Documented by: Guaifenesin/Phenylephrine HCl (Guaifenesin/Dextromethorphan 100-10 Mg/5 Ml Soln 5 Ml Cup) 10 ml PO TID@0700,1400,2100 [facility] Last Admin: 04/19/21 13:34 Dose: 10 ml Documented by: Doxycycline Hyclate 100 mg/ (Sodium Chloride) 100 mls @ 100 mls/hr IV Q12HR [facility] Stop: 04/19/21 21:59 Last Admin: 04/19/21 09:10 Dose: 100 mls/hr Documented by: Ondansetron HCl (Ondansetron 4 Mg/2 Ml Sdv) 4 mg IVPUSH Q6H PRN PRN Reason: Nausea/Vomiting Zinc Sulfate (Zinc Sulfate 220 Mg Cap) 220 mg PO DAILY [facility] Last Admin: 04/19/21 09:10 Dose: 220 mg Documented by: Discontinued Medications Dexamethasone (Dexamethasone 4 Mg/Ml 5 Ml Mdv) 6 mg IV ONETIME ONE Stop: 04/15/21 06:54 Last Admin: 04/15/21 08:00 Dose: 6 mg Documented by: Dexamethasone (Dexamethasone 4 Mg Tab) 6 mg PO DAILY [facility] Stop: 04/24/21 09:01 Doxycycline Hyclate (Doxycycline 100 Mg Cap) 100 mg PO ONETIME ONE Stop: 04/15/21 06:54 Last Admin: 04/15/21 07:54 Dose: 100 mg Documented by: Ceftriaxone Sodium 2 gm/ (Sodium Chloride) 100 mls @ 200 mls/hr IV Q24H [facility] Last Admin: 04/15/21 08:23 Dose: 200 mls/hr Documented by: Remdesivir 200 mg/ Sodium (Chloride) 250 mls @ 250 mls/hr IV ONETIME ONE Stop: 04/15/21 08:29 Last Admin: 04/15/21 08:53 Dose: 250 mls/hr Documented by: Ceftriaxone Sodium 2 gm/ (Sodium Chloride) 100 mls @ 200 mls/hr IV Q24H [facility] Stop: 04/20/21 07:29 Azithromycin 500 mg/ Sodium (Chloride) 250 mls @ 250 mls/hr IV Q24H [facility] Stop: 04/17/21 09:59 Last Admin: 04/15/21 23:52 Dose: Not Given Documented by: Remdesivir 100 mg/ Sodium (Chloride) 100 mls @ 100 mls/hr IV Q24H [facility] Stop: 04/19/21 08:29 Last Admin: 04/19/21 07:41 Dose: 100 mls/hr Documented by: Ceftriaxone Sodium 2 gm/ (Sodium Chloride) 100 mls @ 200 mls/hr IV Q24H [facility] Stop: 04/19/21 07:29 Last Admin: 04/19/21 07:03 Dose: 200 mls/hr Documented by: Ondansetron HCl (Ondansetron 4 Mg/2 Ml Sdv) 4 mg IVPUSH Q4H PRN PRN Reason: Nausea Potassium Chloride (Potassium Chloride 20 Meq Tab.Er) 40 meq PO ONETIME ONE Stop: 04/15/21 08:57 Last Admin: 04/15/21 09:58 Dose: 40 meq Documented by: - Patient Data Lab Results Last 24 hrs: Laboratory Results - last 24 hr 04/19/21 04/19/21 04/19/21 Range/Units 06:44 06:44 06:44 WBC 27.94 H (3.98-10.04) K/mm3 RBC 3.92 L (3.98-5.22) M/mm3 Hgb 12.2 (11.2-15.7) gm/dl Hct 37.5 (34.1-44.9) % MCV 95.7 H (79.4-94.8) fl MCH 31.1 (25.6-32.2) pg MCHC 32.5 (32.2-35.5) g/dl RDW Std Deviation 45.1 (36.4-46.3) fL Plt Count 250 (182-369) K/mm3 MPV 9.6 (9.4-12.3) fl Neut % (Auto) Cancelled Lymph % (Auto) Cancelled [place] % (Auto) Cancelled Eos % (Auto) Cancelled Baso % (Auto) Cancelled Neut # (Auto) Cancelled Lymph # (Auto) Cancelled [place] # (Auto) Cancelled Eos # (Auto) Cancelled Baso # (Auto) Cancelled Neutrophils % (Manual) 24 L (40-60) % Band Neutrophils % 3 (0-10) % Lymphocytes % (Manual) 72 H (20-40) % Atypical Lymphs % 0 % Monocytes % (Manual) 1 L (2-10) % Eosinophils % (Manual) 0 L (0.7-5.8) % Basophils % (Manual) 0 L (0.1-1.2) Manual Slide Review Cancelled Platelet Estimate Adequate Plt Morphology Comment Normal Anisocytosis 1+ slight Macrocytosis 1+ slight RBC Morph Comment Abnormal Percent Retic 0.92 (0.50-1.70) % D-Dimer, Quantitative 0.53 H (0.19-0.50) mg/L Sodium 136 (136-145) mEq/L Potassium 4.2 (3.5-5.1) mEq/L Chloride 102 (98-107) mEq/L Carbon Dioxide 27 (21-32) mEq/L Anion Gap 11.2 (5-15) BUN 14 (7-18) mg/dL Creatinine 0.8 (0.55-1.02) mg/dL Est Cr Clr Drug Dosing 63.77 mL/min Estimated GFR (MDRD) > 60 (>60) mL/min BUN/Creatinine Ratio 17.5 (14-18) Glucose 104 H (70-99) mg/dL Calcium 10.6 H (8.5-10.1) mg/dL Magnesium 1.8 (1.8-2.4) mg/dL Total Bilirubin 0.6 (0.2-1.0) mg/dL AST 14 L (15-37) U/L ALT 29 (14-59) U/L Alkaline Phosphatase 60 (46-116) U/L C-Reactive Protein 8.9 H* (<1.0) mg/dL Total Protein 6.2 L (6.4-8.2) g/dl Albumin 2.7 L (3.4-5.0) g/dl Globulin 3.5 gm/dL Albumin/Globulin Ratio 0.8 L (1-2) Result Diagrams: 04/19/21 06:44 04/19/21 06:44 Sepsis Event Note - Focused Exam Vital Signs: Vital Signs Temp Temp Pulse Pulse Resp BP BP 04/19/21 13:59 04/19/21 11:02 36.7 C 04/19/21 09:00 37.2 C 80 16 126/72 04/19/21 08:00 04/19/21 07:43 37.2 C 80 16 126/72 04/19/21 05:19 36.7 C 86 16 126/65 Pulse Ox Pulse Ox 04/19/21 13:59 89 L 04/19/21 11:02 04/19/21 09:00 90 L 04/19/21 08:00 90 L 04/19/21 07:43 90 L 04/19/21 05:19 91 L - Problem List & Annotations (1) 2019 novel coronavirus-infected pneumonia (NCIP) SNOMED Code(s): 395692309679032831 Code(s): U07.1 - COVID-19; J12.82 - PNEUMONIA DUE TO CORONAVIRUS DISEASE 2019 Status: Acute Priority: High Current Visit: Yes (2) Acute respiratory failure SNOMED Code(s): 56712896 Code(s): J96.00 - ACUTE RESPIRATORY FAILURE, UNSP W HYPOXIA OR HYPERCAPNIA Status: Acute Priority: High Current Visit: Yes Qualifiers: Respiratory failure complication: hypoxia Qualified Code(s): J96.01 - Acute respiratory failure with hypoxia (3) COVID-19 SNOMED Code(s): 780841911 Code(s): U07.1 - COVID-19 Status: Acute Priority: High Current Visit: Yes (4) Leukocytosis SNOMED Code(s): 303937877, 311029179 Code(s): D72.829 - ELEVATED WHITE BLOOD CELL COUNT, UNSPECIFIED Status: Acute Priority: High Current Visit: Yes Qualifiers: Leukocytosis type: lymphocytosis Qualified Code(s): D72.820 - Lymphocytosis (symptomatic) - My Orders Last 24 Hours: My Active Orders 04/19/21 06:44 WBC DIFFERENTIAL, MANUAL [REF] Routine - Free Text/Narrative Note: I have seen and examined the patient independently of Zaid Guaman PA-C. I have discussed the case with him and reviewed and agree with the plan of care as outlined by him. Please see orders.
[2021-04-18] MEDS: REMDESIVIR 100 MG in Sodium Chloride 0.9% 100 ML IV SCH (07:55)
[2021-04-18] MEDS: Acetaminophen 325 MG Tab PO PRN (08:06)
[2021-04-18] MEDS: Albuterol/Ipratropium 3.0-0.5 MG/3 ML Neb Soln NEB PRN ×2 (08:57→23:05)
[2021-04-18] MEDS: Enoxaparin 40 MG/0.4 ML Syringe SUBCUT SCH (09:20)
[2021-04-18] MEDS: Doxycycline 100 MG in Sodium Chloride 0.9% 100 ML IV SCH ×2 (09:20→21:36)
[2021-04-18] MEDS: Famotidine 20 MG Tab PO SCH ×2 (09:21→21:36)
[2021-04-18] MEDS: Zinc Sulfate 220 MG Cap PO SCH (09:21)
[2021-04-18] MEDS: Cholecalciferol (Vitamin D3) 5,000 UNIT Cap PO SCH (09:21)
[2021-04-18] MEDS: guaiFENesin 600 MG Tab.ER PO SCH ×2 (09:21→21:36)
[2021-04-18] MEDS: Dexamethasone 4 MG Tab PO SCH (09:21)
[2021-04-19] MEDS: cefTRIAXone 2 GM in Sodium Chloride 0.9% 100 ML IV SCH (07:03)
[2021-04-19] MEDS: guaiFENesin/Dextromethorphan 100-10 MG/5 ML Soln 5 ML Cup PO SCH ×3 (07:04→20:51)
[2021-04-19] MEDS: REMDESIVIR 100 MG in Sodium Chloride 0.9% 100 ML IV SCH (07:41)
[2021-04-19] MEDS: Zinc Sulfate 220 MG Cap PO SCH (09:10)
[2021-04-19] MEDS: Doxycycline 100 MG in Sodium Chloride 0.9% 100 ML IV SCH ×2 (09:10→20:52)
[2021-04-19] MEDS: Famotidine 20 MG Tab PO SCH ×2 (09:10→20:50)
[2021-04-19] MEDS: Enoxaparin 40 MG/0.4 ML Syringe SUBCUT SCH (09:10)
[2021-04-19] MEDS: Dexamethasone 4 MG Tab PO SCH (09:10)
[2021-04-19] MEDS: Cholecalciferol (Vitamin D3) 5,000 UNIT Cap PO SCH (09:10)
[2021-04-19] MEDS: guaiFENesin 600 MG Tab.ER PO SCH ×2 (09:10→20:50)
--- NOTE | 2021-04-19 09:24 | PCM.PN ---
- General Info Date of Service: 04/19/21 Admission Dx/Problem (Free Text): Admission Diagnosis/Problem Admission Diagnosis/Problem Hypoxia Subjective Update: The patient is a 60-year-old lady who was admitted to acute hospitalization on April 15, 2021 due to COVID-19 pneumonia. Today the patient says that she is feeling weak. She has been breathing better. She is tolerating her diet. The patient has denied any new pain. Functional Status: Reports: Pain Controlled - Review of Systems General: Reports: Weakness, Fatigue HEENT: Reports: No Symptoms Pulmonary: Reports: Shortness of Breath Cardiovascular: Reports: No Symptoms Gastrointestinal: Reports: No Symptoms Genitourinary: Reports: No Symptoms Musculoskeletal: Reports: No Symptoms Skin: Reports: No Symptoms Neurological: Reports: No Symptoms Psychiatric: Reports: No Symptoms - Patient Data Vitals - Most Recent: Last Vital Signs Temp 36.7 C 04/19/21 05:19 Pulse 86 04/19/21 05:19 Resp 16 04/19/21 05:19 BP 126/65 04/19/21 05:19 Pulse Ox 91 L 04/19/21 05:19 Weight - Most Recent: 94.256 kg I&O - Last 24 Hours: Intake & Output 04/18/21 04/19/21 04/19/21 22:59 06:59 14:59 Intake Total 700 1700 Balance 700 1700 Lab Results Last 24 Hours: Laboratory Results - last 24 hr 04/19/21 04/19/21 04/19/21 Range/Units 06:44 06:44 06:44 WBC 27.94 H (3.98-10.04) K/mm3 RBC 3.92 L (3.98-5.22) M/mm3 Hgb 12.2 (11.2-15.7) gm/dl Hct 37.5 (34.1-44.9) % MCV 95.7 H (79.4-94.8) fl MCH 31.1 (25.6-32.2) pg MCHC 32.5 (32.2-35.5) g/dl RDW Std Deviation 45.1 (36.4-46.3) fL Plt Count 250 (182-369) K/mm3 MPV 9.6 (9.4-12.3) fl Neut % (Auto) 29.3 L (34.0-71.1) % Lymph % (Auto) 67.4 H (19.3-51.7) % [place] % (Auto) 2.9 L (4.7-12.5) % Eos % (Auto) 0 L (0.7-5.8) Baso % (Auto) 0.1 (0.1-1.2) % Neut # (Auto) 8.17 H (1.56-6.13) K/mm3 Lymph # (Auto) 18.84 H (1.18-3.74) K/mm3 [place] # (Auto) 0.81 H (0.24-0.36) K/mm3 Eos # (Auto) 0.01 L (0.04-0.36) K/mm3 Baso # (Auto) 0.02 (0.01-0.08) K/mm3 D-Dimer, Quantitative 0.53 H (0.19-0.50) mg/L Sodium 136 (136-145) mEq/L Potassium 4.2 (3.5-5.1) mEq/L Chloride 102 (98-107) mEq/L Carbon Dioxide 27 (21-32) mEq/L Anion Gap 11.2 (5-15) BUN 14 (7-18) mg/dL Creatinine 0.8 (0.55-1.02) mg/dL Est Cr Clr Drug Dosing 63.77 mL/min Estimated GFR (MDRD) > 60 (>60) mL/min BUN/Creatinine Ratio 17.5 (14-18) Glucose 104 H (70-99) mg/dL Calcium 10.6 H (8.5-10.1) mg/dL Magnesium 1.8 (1.8-2.4) mg/dL Total Bilirubin 0.6 (0.2-1.0) mg/dL AST 14 L (15-37) U/L ALT 29 (14-59) U/L Alkaline Phosphatase 60 (46-116) U/L C-Reactive Protein 8.9 H* (<1.0) mg/dL Total Protein 6.2 L (6.4-8.2) g/dl Albumin 2.7 L (3.4-5.0) g/dl Globulin 3.5 gm/dL Albumin/Globulin Ratio 0.8 L (1-2) Med Orders - Current: Current Medications Acetaminophen (Acetaminophen 325 Mg Tab) 650 mg PO Q4H PRN PRN Reason: Pain (Mild 1-3)/fever Last Admin: 04/18/21 08:06 Dose: 650 mg Documented by: Albuterol (Albuterol 6.7 Gm Inhaler) 0 gm INH Q2H PRN PRN Reason: SOB/Wheezing Last Admin: 04/18/21 05:40 Dose: 2 puff Documented by: Albuterol/Ipratropium (Albuterol/Ipratropium 3.0-0.5 Mg/3 Ml Neb Soln) 3 ml NEB QIDRT PRN PRN Reason: Shortness Of Breath/wheezing Last Admin: 04/18/21 23:05 Dose: 3 ml Documented by: Benzonatate (Benzonatate 100 Mg Cap) 100 mg PO TID PRN PRN Reason: Cough Cholecalciferol (Cholecalciferol (Vitamin D3) 5,000 Unit Cap) 5,000 unit PO DAILY [facility] Last Admin: 04/18/21 09:21 Dose: 5,000 unit Documented by: Dexamethasone (Dexamethasone 4 Mg Tab) 6 mg PO DAILY [facility] Stop: 04/24/21 09:01 Last Admin: 04/18/21 09:21 Dose: 6 mg Documented by: Docusate Sodium (Docusate Sodium 100 Mg Cap) 100 mg PO Q12H PRN PRN Reason: Constipation Enoxaparin Sodium (Enoxaparin 40 Mg/0.4 Ml Syringe) 40 mg SUBCUT DAILY [facility] Last Admin: 04/18/21 09:20 Dose: 40 mg Documented by: Famotidine (Famotidine 20 Mg Tab) 20 mg PO BID [facility] Last Admin: 04/18/21 21:36 Dose: 20 mg Documented by: Guaifenesin (Guaifenesin 600 Mg Tab.Er) 600 mg PO BID [facility] Last Admin: 04/18/21 21:36 Dose: 600 mg Documented by: Guaifenesin/Phenylephrine HCl (Guaifenesin/Dextromethorphan 100-10 Mg/5 Ml Soln 5 Ml Cup) 10 ml PO TID@0700,1400,2100 [facility] Last Admin: 04/19/21 07:04 Dose: 10 ml Documented by: Remdesivir 100 mg/ Sodium (Chloride) 100 mls @ 100 mls/hr IV Q24H [facility] Stop: 04/19/21 08:29 Last Admin: 04/19/21 07:41 Dose: 100 mls/hr Documented by: Doxycycline Hyclate 100 mg/ (Sodium Chloride) 100 mls @ 100 mls/hr IV Q12HR [facility] Stop: 04/19/21 21:59 Last Admin: 04/18/21 21:36 Dose: 100 mls/hr Documented by: Ondansetron HCl (Ondansetron 4 Mg/2 Ml Sdv) 4 mg IVPUSH Q6H PRN PRN Reason: Nausea/Vomiting Zinc Sulfate (Zinc Sulfate 220 Mg Cap) 220 mg PO DAILY [facility] Last Admin: 04/18/21 09:21 Dose: 220 mg Documented by: Discontinued Medications Dexamethasone (Dexamethasone 4 Mg/Ml 5 Ml Mdv) 6 mg IV ONETIME ONE Stop: 04/15/21 06:54 Last Admin: 04/15/21 08:00 Dose: 6 mg Documented by: Dexamethasone (Dexamethasone 4 Mg Tab) 6 mg PO DAILY [facility] Stop: 04/24/21 09:01 Doxycycline Hyclate (Doxycycline 100 Mg Cap) 100 mg PO ONETIME ONE Stop: 04/15/21 06:54 Last Admin: 04/15/21 07:54 Dose: 100 mg Documented by: Ceftriaxone Sodium 2 gm/ (Sodium Chloride) 100 mls @ 200 mls/hr IV Q24H [facility] Last Admin: 04/15/21 08:23 Dose: 200 mls/hr Documented by: Remdesivir 200 mg/ Sodium (Chloride) 250 mls @ 250 mls/hr IV ONETIME ONE Stop: 04/15/21 08:29 Last Admin: 04/15/21 08:53 Dose: 250 mls/hr Documented by: Ceftriaxone Sodium 2 gm/ (Sodium Chloride) 100 mls @ 200 mls/hr IV Q24H [facility] Stop: 04/20/21 07:29 Azithromycin 500 mg/ Sodium (Chloride) 250 mls @ 250 mls/hr IV Q24H [facility] Stop: 04/17/21 09:59 Last Admin: 04/15/21 23:52 Dose: Not Given Documented by: Ceftriaxone Sodium 2 gm/ (Sodium Chloride) 100 mls @ 200 mls/hr IV Q24H [facility] Stop: 04/19/21 07:29 Last Admin: 04/19/21 07:03 Dose: 200 mls/hr Documented by: Ondansetron HCl (Ondansetron 4 Mg/2 Ml Sdv) 4 mg IVPUSH Q4H PRN PRN Reason: Nausea Potassium Chloride (Potassium Chloride 20 Meq Tab.Er) 40 meq PO ONETIME ONE Stop: 04/15/21 08:57 Last Admin: 04/15/21 09:58 Dose: 40 meq Documented by: - Exam Quality Assessment: Supplemental Oxygen, DVT Prophylaxis General: Alert, Oriented, Cooperative, No Acute Distress HEENT: Pupils Equal, Pupils Reactive, EOMI, Mucous Membr. Moist/[place] Neck: Supple, Trachea Midline Lungs: Decreased Breath Sounds, Crackles (Bibasilar) Cardiovascular: Regular Rate, Regular Rhythm GI/Abdominal Exam: Normal Bowel Sounds, Soft, Non-Tender, No Distention (Female) Exam: Deferred Back Exam: Normal Inspection, Full Range of Motion Extremities: Normal Inspection, Normal Range of Motion, No Pedal Edema Skin: Warm, Dry, Intact Neurological: No New Focal Deficit, Normal Gait, Normal Speech Psy/Mental Status: Alert, Normal Affect, Normal Mood - Patient Data Lab Results Last 24 hrs: Laboratory Results - last 24 hr 04/19/21 04/19/21 04/19/21 Range/Units 06:44 06:44 06:44 WBC 27.94 H (3.98-10.04) K/mm3 RBC 3.92 L (3.98-5.22) M/mm3 Hgb 12.2 (11.2-15.7) gm/dl Hct 37.5 (34.1-44.9) % MCV 95.7 H (79.4-94.8) fl MCH 31.1 (25.6-32.2) pg MCHC 32.5 (32.2-35.5) g/dl RDW Std Deviation 45.1 (36.4-46.3) fL Plt Count 250 (182-369) K/mm3 MPV 9.6 (9.4-12.3) fl Neut % (Auto) 29.3 L (34.0-71.1) % Lymph % (Auto) 67.4 H (19.3-51.7) % [place] % (Auto) 2.9 L (4.7-12.5) % Eos % (Auto) 0 L (0.7-5.8) Baso % (Auto) 0.1 (0.1-1.2) % Neut # (Auto) 8.17 H (1.56-6.13) K/mm3 Lymph # (Auto) 18.84 H (1.18-3.74) K/mm3 [place] # (Auto) 0.81 H (0.24-0.36) K/mm3 Eos # (Auto) 0.01 L (0.04-0.36) K/mm3 Baso # (Auto) 0.02 (0.01-0.08) K/mm3 D-Dimer, Quantitative 0.53 H (0.19-0.50) mg/L Sodium 136 (136-145) mEq/L Potassium 4.2 (3.5-5.1) mEq/L Chloride 102 (98-107) mEq/L Carbon Dioxide 27 (21-32) mEq/L Anion Gap 11.2 (5-15) BUN 14 (7-18) mg/dL Creatinine 0.8 (0.55-1.02) mg/dL Est Cr Clr Drug Dosing 63.77 mL/min Estimated GFR (MDRD) > 60 (>60) mL/min BUN/Creatinine Ratio 17.5 (14-18) Glucose 104 H (70-99) mg/dL Calcium 10.6 H (8.5-10.1) mg/dL Magnesium 1.8 (1.8-2.4) mg/dL Total Bilirubin 0.6 (0.2-1.0) mg/dL AST 14 L (15-37) U/L ALT 29 (14-59) U/L Alkaline Phosphatase 60 (46-116) U/L C-Reactive Protein 8.9 H* (<1.0) mg/dL Total Protein 6.2 L (6.4-8.2) g/dl Albumin 2.7 L (3.4-5.0) g/dl Globulin 3.5 gm/dL Albumin/Globulin Ratio 0.8 L (1-2) Result Diagrams: 04/19/21 06:44 04/19/21 06:44 Sepsis Event Note - Evaluation Sepsis Screening Result: No Definite Risk - Focused Exam Vital Signs: Vital Signs Temp Pulse Resp BP Pulse Ox Pulse Ox 04/19/21 05:19 36.7 C 86 16 126/65 91 L 09/24/21 23:55 90 L 04/18/21 23:50 87 L 04/18/21 23:45 83 L 04/18/21 23:08 89 L 04/18/21 21:30 37.1 C 94 13 117/61 88 L - Problem List & Annotations (1) 2019 novel coronavirus-infected pneumonia (NCIP) SNOMED Code(s): 368350221631524073 Code(s): U07.1 - COVID-19; J12.82 - PNEUMONIA DUE TO CORONAVIRUS DISEASE 2019 Status: Acute Priority: High Current Visit: Yes (2) Acute respiratory failure SNOMED Code(s): 31952501 Code(s): J96.00 - ACUTE RESPIRATORY FAILURE, UNSP W HYPOXIA OR HYPERCAPNIA Status: Acute Priority: High Current Visit: Yes Qualifiers: Respiratory failure complication: hypoxia Qualified Code(s): J96.01 - Acute respiratory failure with hypoxia (3) COVID-19 SNOMED Code(s): 980997740 Code(s): U07.1 - COVID-19 Status: Acute Priority: High Current Visit: Yes (4) Leukocytosis SNOMED Code(s): 111375954, 261333431 Code(s): D72.829 - ELEVATED WHITE BLOOD CELL COUNT, UNSPECIFIED Status: Acu te Priority: High Current Visit: Yes Qualifiers: Leukocytosis type: lymphocytosis Qualified Code(s): D72.820 - Lymphocytosis (symptomatic) - Problem List Review Problem List Initiated/Reviewed/Updated: Yes - Assessment Assessment:: Assessment - day of admission 04/15/2021 * 60-year-old female who presents to our ED in the very grey stock recorder hours of 04/15/2021 with continued Covid symptoms. * History of PE secondary to an accident. Recurrent bronchitis, GERD, chronic abdominal pain, anemia, status post vena cava filter in 2001 * Had been seen in the ED on 04/12/2021 for Covid and was sent home with steroids, albuterol MDI, Zofran for nausea and incentive spirometry. * For the patient's symptoms began on 04/09/2021 and she tested positive on 04/10/2021. * She reportedly completed her Pfizer vaccination series for Covid pneumonia. * On her prior visit she was noting significant nausea and vomiting, which she states has improved. * She is now complaining of intermittent shortness of breath. * Saturations were okay on arrival however when the patient fell asleep in the room she was noted to have saturations in the upper 80s. * 12-lead EKG is obtained showing a sinus rhythm with a RSR noted in V1-normal variant. * Labs are obtained showing: * WBC of 17.27. * Hemoglobin is 12.2. Hematocrit 37.1. * She is macrocytic. * Platelets are low at 149,000. * Neutrophils are low at 31.3%. Lymphocytes are high at 64.6%. * D-dimer 0.48. * Sodium is 134. * Potassium 3.4. * Chloride 99. * Carbon dioxide 30. * Anion gap 8.4. * BUN is 14. Creatinine 0.9. GFR greater than 60. * Glucose 113. * Calcium 10.2. * Bilirubin 0.5. * AST is 21, ALT 26, alkaline phosphatase 59. * LDH is 158. * Troponin less than 0.017. * CRP is elevated at 15.9. * Protein is 6.4. * Albumin is low at 2.9. * Ferritin is 1361. * Chest x-ray is obtained and interpreted by Dr. Gastelum, radiologist as: * 1. Stable area of probable Covid pneumonia within both lungs. * 2. Slight increased atelectasis within the right midlung. * 3. Other findings as noted above which are chronic. * Provider attempted to wean patient off oxygen but was unable. * Given her elevated white count she started on Rocephin and doxycycline. * She is also given dexamethasone and remdesivir for her Covid symptoms. * Patient subsequently admitted to the hospital inpatient on telemetry for management of her COVID-19 pneumonia. 04/16/2021 60-year-old female admitted to the floor for COVID-19 pneumonia treatment. Patient has completed her full Pfizer vaccination series. Overall patient is doing quite well. She did note that her cough is becoming more productive. She does have pleuritic chest pain with coughing but otherwise feels pretty good. She has been up ambulating but it does note that she has had some weakness. She is currently on 1/2 L of oxygen with saturations in the low 90s. WBC today was 17.24. This is likely elevated due to steroid use. Hemoglobin 11.9. Platelet remained stable at 147,000. Neutrophils are low at 29.6. Lymphocytes are elevated at 66.9. Sodium remains low at 134. Potassium is 4.3. Chloride 100. Carbon dioxide 26. Anion gap 12.3. BUN is 17. Creatinine 0.7. GFR greater than 60. Glucose is 119. Lactic acid yesterday was 1.0. Calcium is 10.4. Magnesium 2.0. Bilirubin 0.4. AST is 25, ALT 30, alkaline phosphatase 60. CRP is up to 20.6. Protein is 6.4. Albumin is down to 2.7. Vitamin D yesterday was 28.3. Procalcitonin on admission was 0.12. We will continue current treatment plan with remdesivir and dexamethasone. We will continue to attempt to wean patient from oxygen. She has been proning and utilizing her I-S and Acapella. She would likely require a few more days pending continued improvement with oxygen wean. We will continue antibiotic therapy as her white count remains elevated and her CRP is going up. 04/17/2021 This is a 60-year-old female admitted to the floor for COVID-19 pneumonia treatment. She reports a cough with her breathing exercises today but overall she is doing okay. She states she definitely feels worse today than yesterday and that she is more weak. Remains on half a liter of oxygen with saturations in the upper 80s. WBC today jumped to 35.88. Hemoglobin is 13.4. Platelet 228,000. Smear shows leukocytosis but no toxic granulation or band neutrophils. D-dimer remained stable at 0.44. Sodium is 140. Potassium 4.3. Chloride 103. Carbon dioxide 26. Anion gap is 15.3. BUN is 17. Creatinine 0.7. GFR greater than 60. Glucose 124. Calcium 10.7. Magnesium 2.1. Total bilirubin 0.5. AST 90, ALT 35, alkaline phosphatase 67. CRP is down to 16.8. Albumin is 3.0. Patient is on Rocephin and doxycycline already follow as noted her procalcitonin on admission was 0.12. Blood cultures have been negative thus far. Suspect leukocytosis is secondary to steroid. Repeat portable chest x-ray obtained today shows stable to improving bilateral infiltrates consistent with COVID-19 pneumonia. We will continue current treatment plan with antibiotics, dexamethasone, and remdesivir. Anticipate discharge in a couple days once completed remdesivir treatment. 04/18/2021 60-year-old female admitted to the floor for COVID-19 pneumonia. Overall she continues to do quite well. She continues to have a rather significant productive cough when she utilizes her I-S or Acapella. She was down to 0.5 L of oxygen this morning and we are attempting to wean her off. She continues to receive CIWA remdesivir and dexamethasone. She is also receiving Rocephin and doxycycline. She will complete this treatment tomorrow. From a laboratory standpoint her WBC continues to be elevated although improved at 29.86. Likely steroid related. Platelets are up to 254,000. Neutrophils are 28.3. Smear results show a leukocytosis and lymphocytosis. Sodium is 137. Potassium 4.4. Chloride 102. Carbon dioxide 26. Anion gap is 13.4. BUN is 16. Creatinine 0.7. GFR greater than 60. Calcium is 10.5. Magnesium 1.9. Bilirubin 0.5. AST is 15, ALT 33, alkaline phosphatase 64. CRP is improved to 9.6. Albumin is 2.8. Protein is 6.5. We will continue current treatment plan. Hopeful for discharge tomorrow versus Wednesday pending continued improvement and completion of treatment. 04/19/2021 The patient is a 60-year-old lady who will be retained in hospitalization due to her oxygen demands. We will titrate the oxygen to help keep her saturations suzanne und 92%. She has finished remdesivir. We will continue steroids for now. The patient is noted to have leukocytosis and pathology review of the smear was warranted and ordered. The patient WBC count is predominantly lymphocytes and has been as high as 35,000 this is concerning for either leukemoid reaction or leukemia. Repeat laboratory studies have been ordered. DVT prophylaxis will continue. Upon discharge the patient will need to have follow-up with her primary care physician. The patient has been encouraged to ambulate. - Plan Plan:: COVID-19 Elevated C-reactive protein Hypoxia Acute respiratory failure COVID-19 vaccine series completed Generalized weakness * O2 as needed with goal saturations of 88 to 95% * Consult RT * I-S/Acapella * Remdesivir - day 4/5 * Dexamethasone - day 01/02 (started outpatient) * Famotidine 20 mg twice daily * Zinc supplementation * Prone whenever able * Ambulate around room * Airborne/contact precautions * PT/OT * CM/social work * As needed albuterol MDI * As needed DuoNebs * Daily labs * Every 48 hour D-dimer * Telemetry * Continuous pulse oximetry * Mucinex BID * Tessalon Perles TID PRN for cough Leukocytosis Pneumonia * Leukocytosis may be related to steroid although cannot rule out pneumonia * Blood cultures negative thus far * 2 g daily Rocephin - day / * 100mg doxycycline BID - day 4/ * Monitor labs * Other orders as mentioned above Hypokalemia ,resolved * Monitor labs Vitamin D deficiency * Start 5,000 units supplementation daily * PCP follow-up Thrombocytopenia, resolved * Monitor labs * Likely 2/2 COVID as above Hypoalbuminemia * 2/2 COVID above * Waxing [employer] consultation Code status: Full Code PCP: Dr. Spain DVT prophylaxis: Lovenox Disposition: Patient mated to medical floor for management of COVID-19 pneumonia with possible secondary bacterial pneumonia. Patient failed outpatient treatment for Covid. Likely length of stay 4 to 5 days total pending improveme nt.
[2021-04-19] MEDS ORDERED: Witch Hazel Medicated Pads 40/Jar TOP PRN (18:28)
[2021-04-19] MEDS: Albuterol/Ipratropium 3.0-0.5 MG/3 ML Neb Soln NEB PRN (19:52)
[2021-04-20] MEDS: guaiFENesin/Dextromethorphan 100-10 MG/5 ML Soln 5 ML Cup PO SCH ×3 (07:02→20:16)
--- NOTE | 2021-04-20 07:10 | PCM.PN ---
- General Info Date of Service: 04/20/21 Admission Dx/Problem (Free Text): Admission Diagnosis/Problem Admission Diagnosis/Problem Hypoxia Subjective Update: The patient is a 60-year-old lady who had been admitted through the emergency department with continuing Covid symptoms. The patient today is still feeling kind of weak. She still has oxygen requirements. The patient has been tolerating her diet. The patient has denied any new pain. Functional Status: Reports: Pain Controlled, Tolerating Diet - Review of Systems General: Reports: Weakness, Fatigue HEENT: Reports: No Symptoms Pulmonary: Reports: No Symptoms Cardiovascular: Reports: No Symptoms Gastrointestinal: Reports: No Symptoms Genitourinary: Reports: No Symptoms Musculoskeletal: Reports: No Symptoms Skin: Reports: No Symptoms Neurological: Reports: No Symptoms Psychiatric: Reports: No Symptoms - Patient Data Vitals - Most Recent: Last Vital Signs Temp 36.9 C 04/20/21 04:28 Pulse 78 04/20/21 04:28 Resp 14 04/20/21 04:28 BP 121/68 04/20/21 04:28 Pulse Ox 92 L 04/20/21 04:45 Weight - Most Recent: 93.939 kg I&O - Last 24 Hours: Intake & Output 04/19/21 04/20/21 04/20/21 22:59 06:59 14:59 Intake Total 1740 1500 Balance 1740 1500 Lab Results Last 24 Hours: Laboratory Results - last 24 hr 04/19/21 04/19/21 04/19/21 Range/Units 06:44 06:44 06:44 WBC 27.94 H (3.98-10.04) K/mm3 RBC 3.92 L (3.98-5.22) M/mm3 Hgb 12.2 (11.2-15.7) gm/dl Hct 37.5 (34.1-44.9) % MCV 95.7 H (79.4-94.8) fl MCH 31.1 (25.6-32.2) pg MCHC 32.5 (32.2-35.5) g/dl RDW Std Deviation 45.1 (36.4-46.3) fL Plt Count 250 (182-369) K/mm3 MPV 9.6 (9.4-12.3) fl Neut % (Auto) Cancelled Lymph % (Auto) Cancelled [place] % (Auto) Cancelled Eos % (Auto) Cancelled Baso % (Auto) Cancelled Neut # (Auto) Cancelled Lymph # (Auto) Cancelled [place] # (Auto) Cancelled Eos # (Auto) Cancelled Baso # (Auto) Cancelled Neutrophils % (Manual) 24 L (40-60) % Band Neutrophils % 3 (0-10) % Lymphocytes % (Manual) 72 H (20-40) % Atypical Lymphs % 0 % Monocytes % (Manual) 1 L (2-10) % Eosinophils % (Manual) 0 L (0.7-5.8) % Basophils % (Manual) 0 L (0.1-1.2) Manual Slide Review Cancelled Platelet Estimate Adequate Plt Morphology Comment Normal Anisocytosis 1+ slight Macrocytosis 1+ slight RBC Morph Comment Abnormal Percent Retic 0.92 (0.50-1.70) % D-Dimer, Quantitative 0.53 H (0.19-0.50) mg/L Sodium 136 (136-145) mEq/L Potassium 4.2 (3.5-5.1) mEq/L Chloride 102 (98-107) mEq/L Carbon Dioxide 27 (21-32) mEq/L Anion Gap 11.2 (5-15) BUN 14 (7-18) mg/dL Creatinine 0.8 (0.55-1.02) mg/dL Est Cr Clr Drug Dosing 63.77 mL/min Estimated GFR (MDRD) > 60 (>60) mL/min BUN/Creatinine Ratio 17.5 (14-18) Glucose 104 H (70-99) mg/dL Calcium 10.6 H (8.5-10.1) mg/dL Magnesium 1.8 (1.8-2.4) mg/dL Total Bilirubin 0.6 (0.2-1.0) mg/dL AST 14 L (15-37) U/L ALT 29 (14-59) U/L Alkaline Phosphatase 60 (46-116) U/L C-Reactive Protein 8.9 H* (<1.0) mg/dL Total Protein 6.2 L (6.4-8.2) g/dl Albumin 2.7 L (3.4-5.0) g/dl Globulin 3.5 gm/dL Albumin/Globulin Ratio 0.8 L (1-2) 04/20/21 04/20/21 Range/Units 05:19 05:19 WBC 29.99 H (3.98-10.04) K/mm3 RBC 4.01 (3.98-5.22) M/mm3 Hgb 12.4 (11.2-15.7) gm/dl Hct 38.6 (34.1-44.9) % MCV 96.3 H (79.4-94.8) fl MCH 30.9 (25.6-32.2) pg MCHC 32.1 L (32.2-35.5) g/dl RDW Std Deviation 45.6 (36.4-46.3) fL Plt Count 277 (182-369) K/mm3 MPV 9.6 (9.4-12.3) fl Neut % (Auto) 24.6 L Lymph % (Auto) 72.6 H [place] % (Auto) 2.3 L Eos % (Auto) 0 L Baso % (Auto) 0.1 Neut # (Auto) 7.38 H Lymph # (Auto) 21.77 H [place] # (Auto) 0.69 H Eos # (Auto) 0.01 L Baso # (Auto) 0.03 Neutrophils % (Manual) (40-60) % Band Neutrophils % (0-10) % Lymphocytes % (Manual) (20-40) % Atypical Lymphs % % Monocytes % (Manual) (2-10) % Eosinophils % (Manual) (0.7-5.8) % Basophils % (Manual) (0.1-1.2) Manual Slide Review Platelet Estimate Plt Morphology Comment Anisocytosis Macrocytosis RBC Morph Comment Percent Retic (0.50-1.70) % D-Dimer, Quantitative (0.19-0.50) mg/L Sodium 138 (136-145) mEq/L Potassium 4.3 (3.5-5.1) mEq/L Chloride 103 (98-107) mEq/L Carbon Dioxide 27 (21-32) mEq/L Anion Gap 12.3 (5-15) BUN 17 (7-18) mg/dL Creatinine 0.8 (0.55-1.02) mg/dL Est Cr Clr Drug Dosing 63.77 mL/min Estimated GFR (MDRD) > 60 (>60) mL/min BUN/Creatinine Ratio 21.3 H (14-18) Glucose 119 H (70-99) mg/dL Calcium 10.5 H (8.5-10.1) mg/dL Magnesium 2.0 (1.8-2.4) mg/dL Total Bilirubin 0.5 (0.2-1.0) mg/dL AST 11 L (15-37) U/L ALT 26 (14-59) U/L Alkaline Phosphatase 61 (46-116) U/L C-Reactive Protein (<1.0) mg/dL Total Protein 6.1 L (6.4-8.2) g/dl Albumin 2.5 L (3.4-5.0) g/dl Globulin 3.6 gm/dL Albumin/Globulin Ratio 0.7 L (1-2) Med Orders - Current: Current Medications Acetaminophen (Acetaminophen 325 Mg Tab) 650 mg PO Q4H PRN PRN Reason: Pain (Mild 1-3)/fever Last Admin: 04/18/21 08:06 Dose: 650 mg Documented by: Albuterol (Albuterol 6.7 Gm Inhaler) 0 gm INH Q2H PRN PRN Reason: SOB/Wheezing Last Admin: 04/18/21 05:40 Dose: 2 puff Documented by: Albuterol/Ipratropium (Albuterol/Ipratropium 3.0-0.5 Mg/3 Ml Neb Soln) 3 ml NEB QIDRT PRN PRN Reason: Shortness Of Breath/wheezing Last Admin: 04/19/21 19:52 Dose: 3 ml Documented by: Benzonatate (Benzonatate 100 Mg Cap) 100 mg PO TID PRN PRN Reason: Cough Cholecalciferol (Cholecalciferol (Vitamin D3) 5,000 Unit Cap) 5,000 unit PO DAILY [facility] Last Admin: 04/19/21 09:10 Dose: 5,000 unit Documented by: Dexamethasone (Dexamethasone 4 Mg Tab) 6 mg PO DAILY [facility] Stop: 04/24/21 09:01 Last Admin: 04/19/21 09:10 Dose: 6 mg Documented by: Docusate Sodium (Docusate Sodium 100 Mg Cap) 100 mg PO Q12H PRN PRN Reason: Constipation Enoxaparin Sodium (Enoxaparin 40 Mg/0.4 Ml Syringe) 40 mg SUBCUT DAILY [facility] Last Admin: 04/19/21 09:10 Dose: 40 mg Documented by: Famotidine (Famotidine 20 Mg Tab) 20 mg PO BID [facility] Last Admin: 04/19/21 20:50 Dose: 20 mg Documented by: Guaifenesin (Guaifenesin 600 Mg Tab.Er) 600 mg PO BID [facility] Last Admin: 04/19/21 20:50 Dose: 600 mg Documented by: Guaifenesin/Phenylephrine HCl (Guaifenesin/Dextromethorphan 100-10 Mg/5 Ml Soln 5 Ml Cup) 10 ml PO TID@0700,1400,2100 [facility] Last Admin: 04/20/21 07:02 Dose: 10 ml Documented by: Ondansetron HCl (Ondansetron 4 Mg/2 Ml Sdv) 4 mg IVPUSH Q6H PRN PRN Reason: Nausea/Vomiting Witch Jacy (Witch Jacy Medicated Pads 40/Jar) 1 pad TOP ASDIRECTED PRN PRN Reason: Hemorrhoids Last Admin: 04/19/21 19:21 Dose: 1 applic Documented by: Zinc Sulfate (Zinc Sulfate 220 Mg Cap) 220 mg PO DAILY [facility] Last Admin: 04/19/21 09:10 Dose: 220 mg Documented by: Discontinued Medications Dexamethasone (Dexamethasone 4 Mg/Ml 5 Ml Mdv) 6 mg IV ONETIME ONE Stop: 04/15/21 06:54 Last Admin: 04/15/21 08:00 Dose: 6 mg Documented by: Dexamethasone (Dexamethasone 4 Mg Tab) 6 mg PO DAILY [facility] Stop: 04/24/21 09:01 Doxycycline Hyclate (Doxycycline 100 Mg Cap) 100 mg PO ONETIME ONE Stop: 04/15/21 06:54 Last Admin: 04/15/21 07:54 Dose: 100 mg Documented by: Ceftriaxone Sodium 2 gm/ (Sodium Chloride) 100 mls @ 200 mls/hr IV Q24H [facility] Last Admin: 04/15/21 08:23 Dose: 200 mls/hr Documented by: Remdesivir 200 mg/ Sodium (Chloride) 250 mls @ 250 mls/hr IV ONETIME ONE Stop: 04/15/21 08:29 Last Admin: 04/15/21 08:53 Dose: 250 mls/hr Documented by: Ceftriaxone Sodium 2 gm/ (Sodium Chloride) 100 mls @ 200 mls/hr IV Q24H [facility] Stop: 04/20/21 07:29 Azithromycin 500 mg/ Sodium (Chloride) 250 mls @ 250 mls/hr IV Q24H [facility] Stop: 04/17/21 09:59 Last Admin: 04/15/21 23:52 Dose: Not Given Documented by: Remdesivir 100 mg/ Sodium (Chloride) 100 mls @ 100 mls/hr IV Q24H [facility] Stop: 04/19/21 08:29 Last Admin: 04/19/21 07:41 Dose: 100 mls/hr Documented by: Doxycycline Hyclate 100 mg/ (Sodium Chloride) 100 mls @ 100 mls/hr IV Q12HR [facility] Stop: 04/19/21 21:59 Last Admin: 04/19/21 20:52 Dose: 100 mls/hr Documented by: Ceftriaxone Sodium 2 gm/ (Sodium Chloride) 100 mls @ 200 mls/hr IV Q24H [facility] Stop: 04/19/21 07:29 Last Admin: 04/19/21 07:03 Dose: 200 mls/hr Documented by: Ondansetron HCl (Ondansetron 4 Mg/2 Ml Sdv) 4 mg IVPUSH Q4H PRN PRN Reason: Nausea Potassium Chloride (Potassium Chloride 20 Meq Tab.Er) 40 meq PO ONETIME ONE Stop: 04/15/21 08:57 Last Admin: 04/15/21 09:58 Dose: 40 meq Documented by: - Exam Quality Assessment: Supplemental Oxygen, DVT Prophylaxis General: Alert, Oriented, Cooperative HEENT: Pupils Equal, Pupils Reactive, EOMI Neck: Supple, Trachea Midline Lungs: Clear to Auscultation, Normal Respiratory Effort Cardiovascular: Regular Rate, Regular Rhythm GI/Abdominal Exam: Normal Bowel Sounds, Soft, Non-Tender, No Distention (Female) Exam: Deferred Back Exam: Normal Inspection, Full Range of Motion Extremities: Normal Inspection, Normal Range of Motion, No Pedal Edema Skin: Warm, Dry, Intact Neurological: No New Focal Deficit Psy/Mental Status: Alert, Normal Affect, Normal Mood - Patient Data Lab Results Last 24 hrs: Laboratory Results - last 24 hr 04/19/21 04/19/21 04/19/21 Range/Units 06:44 06:44 06:44 WBC 27.94 H (3.98-10.04) K/mm3 RBC 3.92 L (3.98-5.22) M/mm3 Hgb 12.2 (11.2-15.7) gm/dl Hct 37.5 (34.1-44.9) % MCV 95.7 H (79.4-94.8) fl MCH 31.1 (25.6-32.2) pg MCHC 32.5 (32.2-35.5) g/dl RDW Std Deviation 45.1 (36.4-46.3) fL Plt Count 250 (182-369) K/mm3 MPV 9.6 (9.4-12.3) fl Neut % (Auto) Cancelled Lymph % (Auto) Cancelled [place] % (Auto) Cancelled Eos % (Auto) Cancelled Baso % (Auto) Cancelled Neut # (Auto) Cancelled Lymph # (Auto) Cancelled [place] # (Auto) Cancelled Eos # (Auto) Cancelled Baso # (Auto) Cancelled Neutrophils % (Manual) 24 L (40-60) % Band Neutrophils % 3 (0-10) % Lymphocytes % (Manual) 72 H (20-40) % Atypical Lymphs % 0 % Monocytes % (Manual) 1 L (2-10) % Eosinophils % (Manual) 0 L (0.7-5.8) % Basophils % (Manual) 0 L (0.1-1.2) Manual Slide Review Cancelled Platelet Estimate Adequate Plt Morphology Comment Normal Anisocytosis 1+ slight Macrocytosis 1+ slight RBC Morph Comment Abnormal Percent Retic 0.92 (0.50-1.70) % D-Dimer, Quantitative 0.53 H (0.19-0.50) mg/L Sodium 136 (136-145) mEq/L Potassium 4.2 (3.5-5.1) mEq/L Chloride 102 (98-107) mEq/L Carbon Dioxide 27 (21-32) mEq/L Anion Gap 11.2 (5-15) BUN 14 (7-18) mg/dL Creatinine 0.8 (0.55-1.02) mg/dL Est Cr Clr Drug Dosing 63.77 mL/min Estimated GFR (MDRD) > 60 (>60) mL/min BUN/Creatinine Ratio 17.5 (14-18) Glucose 104 H (70-99) mg/dL Calcium 10.6 H (8.5-10.1) mg/dL Magnesium 1.8 (1.8-2.4) mg/dL Total Bilirubin 0.6 (0.2-1.0) mg/dL AST 14 L (15-37) U/L ALT 29 (14-59) U/L Alkaline Phosphatase 60 (46-116) U/L C-Reactive Protein 8.9 H* (<1.0) mg/dL Total Protein 6.2 L (6.4-8.2) g/dl Albumin 2.7 L (3.4-5.0) g/dl Globulin 3.5 gm/dL Albumin/Globulin Ratio 0.8 L (1-2) 04/20/21 04/20/21 Range/Units 05:19 05:19 WBC 29.99 H (3.98-10.04) K/mm3 RBC 4.01 (3.98-5.22) M/mm3 Hgb 12.4 (11.2-15.7) gm/dl Hct 38.6 (34.1-44.9) % MCV 96.3 H (79.4-94.8) fl MCH 30.9 (25.6-32.2) pg MCHC 32.1 L (32.2-35.5) g/dl RDW Std Deviation 45.6 (36.4-46.3) fL Plt Count 277 (182-369) K/mm3 MPV 9.6 (9.4-12.3) fl Neut % (Auto) 24.6 L Lymph % (Auto) 72.6 H [place] % (Auto) 2.3 L Eos % (Auto) 0 L Baso % (Auto) 0.1 Neut # (Auto) 7.38 H Lymph # (Auto) 21.77 H [place] # (Auto) 0.69 H Eos # (Auto) 0.01 L Baso # (Auto) 0.03 Neutrophils % (Manual) (40-60) % Band Neutrophils % (0-10) % Lymphocytes % (Manual) (20-40) % Atypical Lymphs % % Monocytes % (Manual) (2-10) % Eosinophils % (Manual) (0.7-5.8) % Basophils % (Manual) (0.1-1.2) Manual Slide Review Platelet Estimate Plt Morphology Comment Anisocytosis Macrocytosis RBC Morph Comment Percent Retic (0.50-1.70) % D-Dimer, Quantitative (0.19-0.50) mg/L Sodium 138 (136-145) mEq/L Potassium 4.3 (3.5-5.1) mEq/L Chloride 103 (98-107) mEq/L Carbon Dioxide 27 (21-32) mEq/L Anion Gap 12.3 (5-15) BUN 17 (7-18) mg/dL Creatinine 0.8 (0.55-1.02) mg/dL Est Cr Clr Drug Dosing 63.77 mL/min Estimated GFR (MDRD) > 60 (>60) mL/min BUN/Creatinine Ratio 21.3 H (14-18) Glucose 119 H (70-99) mg/dL Calcium 10.5 H (8.5-10.1) mg/dL Magnesium 2.0 (1.8-2.4) mg/dL Total Bilirubin 0.5 (0.2-1.0) mg/dL AST 11 L (15-37) U/L ALT 26 (14-59) U/L Alkaline Phosphatase 61 (46-116) U/L C-Reactive Protein (<1.0) mg/dL Total Protein 6.1 L (6.4-8.2) g/dl Albumin 2.5 L (3.4-5.0) g/dl Globulin 3.6 gm/dL Albumin/Globulin Ratio 0.7 L (1-2) Result Diagrams: 04/20/21 05:19 04/20/21 05:19 Sepsis Event Note - Evaluation Sepsis Screening Result: No Definite Risk - Focused Exam Vital Signs: Vital Signs Temp Pulse Pulse Resp BP Pulse Ox Pulse Ox 04/20/21 04:45 92 L 04/20/21 04:28 36.9 C 78 14 121/68 04/19/21 20:59 81 L 04/19/21 20:55 93 16 91 L 04/19/21 20:49 36.8 C 114 H 125/74 82 L 04/19/21 19:52 91 L - Problem List & Annotations (1) 2019 novel coronavirus-infected pneumonia (NCIP) SNOMED Code(s): 518836110832146925 Code(s): U07.1 - COVID-19; J12.82 - PNEUMONIA DUE TO CORONAVIRUS DISEASE 2019 Status: Acute Priority: High Current Visit: Yes (2) Acute respiratory failure SNOMED Code(s): 97271476 Code(s): J96.00 - ACUTE RESPIRATORY FAILURE, UNSP W HYPOXIA OR HYPERCAPNIA Status: Acute Priority: High Current Visit: Yes Qualifiers: Respiratory failure complication: hypoxia Qualified Code(s): J96.01 - Acute respiratory failure with hypoxia (3) COVID-19 SNOMED Code(s): 733386950 Code(s): U07.1 - COVID-19 Status: Acute Priority: High Current Visit: Yes (4) Leukocytosis SNOMED Code(s): 959819921, 060565331 Code(s): D72.829 - ELEVATED WHITE BLOOD CELL COUNT, UNSPECIFIED Status: Acute Priority: High Current Visit: Yes Qualifiers: Leukocytosis type: lymphocytosis Qualified Code(s): D72.820 - Lymphocytosis (symptomatic) - Problem List Review Problem List Initiated/Reviewed/Updated: Yes - My Orders Last 24 Hours: My Active Orders 04/19/21 06:44 WBC DIFFERENTIAL, MANUAL [REF] Routine 04/19/21 18:28 killian Kumari [Tucks] 1 pad TOP ASDIRECTED PRN 04/20/21 05:19 CBC WITH AUTO DIFF [HEME] AM - Assessment Assessment:: Assessment - day of admission 04/15/2021 * 60-year-old female who presents to our ED in the very stuntman hours of 04/15/2021 with continued Covid symptoms. * History of PE secondary to an accident. Recurrent bronchitis, GERD, chronic abdominal pain, anemia, status post vena cava filter in 2001 * Had been seen in the ED on 04/12/2021 for Covid and was sent home with steroids, albuterol MDI, Zofran for nausea and incentive spirometry. * For the patient's symptoms began on 04/09/2021 and she tested positive on 04/10/2021. * She reportedly completed her Pfizer vaccination series for Covid pneumonia. * On her prior visit she was noting significant nausea and vomiting, which she states has improved. * She is now complaining of intermittent shortness of breath. * Saturations were okay on arrival however when the patient fell asleep in the room she was noted to have saturations in the upper 80s. * 12-lead EKG is obtained showing a sinus rhythm with a RSR noted in V1-normal variant. * Labs are obtained showing: * WBC of 17.27. * Hemoglobin is 12.2. Hematocrit 37.1. * She is macrocytic. * Platelets are low at 149,000. * Neutrophils are low at 31.3%. Lymphocytes are high at 64.6%. * D-dimer 0.48. * Sodium is 134. * Potassium 3.4. * Chloride 99. * Carbon dioxide 30. * Anion gap 8.4. * BUN is 14. Creatinine 0.9. GFR greater than 60. * Glucose 113. * Calcium 10.2. * Bilirubin 0.5. * AST is 21, ALT 26, alkaline phosphatase 59. * LDH is 158. * Troponin less than 0.017. * CRP is elevated at 15.9. * Protein is 6.4. * Albumin is low at 2.9. * Ferritin is 1361. * Chest x-ray is obtained and interpreted by Dr. Gsatelum, radiologist as: * 1. Stable area of probable Covid pneumonia within both lungs. * 2. Slight increased atelectasis within the right midlung. * 3. Other findings as noted above which are chronic. * Provider attempted to wean patient off oxygen but was unable. * Given her elevated white count she started on Rocephin and doxycycline. * She is also given dexamethasone and remdesivir for her Covid symptoms. * Patient subsequently admitted to the hospital inpatient on telemetry for management of her COVID-19 pneumonia. 04/16/2021 60-year-old female admitted to the floor for COVID-19 pneumonia treatment. Patient has completed her full Pfizer vaccination series. Overall patient is doing quite well. She did note that her cough is becoming more productive. She does have pleuritic chest pain with coughing but otherwise feels pretty good. She has been up ambulating but it does note that she has had some weakness. She is currently on 1/2 L of oxygen with saturations in the low 90s. WBC today was 17.24. This is likely elevated due to steroid use. Hemoglobin 11.9. Platelet remained stable at 147,000. Neutrophils are low at 29.6. Lymphocytes are elevated at 66.9. Sodium remains low at 134. Potassium is 4.3. Chloride 100. Carbon dioxide 26. Anion gap 12.3. BUN is 17. Creatinine 0.7. GFR greater than 60. Glucose is 119. Lactic acid yesterday was 1.0. Calcium is 10.4. Magnesium 2.0. Bilirubin 0.4. AST is 25, ALT 30, alkaline phosphatase 60. CRP is up to 20.6. Protein is 6.4. Albumin is down to 2.7. Vitamin D yesterday was 28.3. Procalcitonin on admission was 0.12. We will continue current treatment plan with remdesivir and dexamethasone. We will continue to attempt to wean patient from oxygen. She has been proning and utilizing her I-S and Acapella. She would likely require a few more days pending continued improvement with oxygen wean. We will continue antibiotic therapy as her white count remains elevated and her CRP is going up. 04/17/2021 This is a 60-year-old female admitted to the floor for COVID-19 pneumonia treatment. She reports a cough with her breathing exercises today but overall she is doing okay. She states she definitely feels worse today than yesterday and that she is more weak. Remains on half a liter of oxygen with saturations in the upper 80s. WBC today jumped to 35.88. Hemoglobin is 13.4. Platelet 228,000. Smear shows leukocytosis but no toxic granulation or band neutrophils. D-dimer remained stable at 0.44. Sodium is 140. Potassium 4.3. Chloride 103. Carbon dioxide 26. Anion gap is 15.3. BUN is 17. Creatinine 0.7. GFR greater than 60. Glucose 124. Calcium 10.7. Magnesium 2.1. Total bilirubin 0.5. AST 90, ALT 35, alkaline phosphatase 67. CRP is down to 16.8. Albumin is 3.0. Patient is on Rocephin and doxycycline already follow as noted her procalcitonin on admission was 0.12. Blood cultures have been negative thus far. Suspect leukocytosis is secondary to steroid. Repeat portable chest x-ray obtained today shows stable to improving bilateral infiltrates consistent with COVID-19 pneumonia. We will continue current treatment plan with antibiotics, dexamethasone, and remdesivir. Anticipate discharge in a couple days once completed remdesivir treatment. 04/18/2021 60-year-old female admitted to the floor for COVID-19 pneumonia. Overall she c ontinues to do quite well. She continues to have a rather significant productive cough when she utilizes her I-S or Acapella. She was down to 0.5 L of oxygen this morning and we are attempting to wean her off. She continues to receive CIWA remdesivir and dexamethasone. She is also receiving Rocephin and doxycycline. She will complete this treatment tomorrow. From a laboratory standpoint her WBC continues to be elevated although improved at 29.86. Likely steroid related. Platelets are up to 254,000. Neutrophils are 28.3. Smear results show a leukocytosis and lymphocytosis. Sodium is 137. Potassium 4.4. Chloride 102. Carbon dioxide 26. Anion gap is 13.4. BUN is 16. Creatinine 0.7. GFR greater than 60. Calcium is 10.5. Magnesium 1.9. Bilirubin 0.5. AST is 15, ALT 33, alkaline phosphatase 64. CRP is improved to 9.6. Albumin is 2.8. Protein is 6.5. We will continue current treatment plan. Hopeful for discharge tomorrow versus Wednesday pending continued improvement and completion of treatment. 04/19/2021 The patient is a 60-year-old lady who will be retained in hospitalization due to her oxygen demands. We will titrate the oxygen to help keep her saturations around 92%. She has finished remdesivir. We will continue steroids for now. The patient is noted to have leukocytosis and pathology review of the smear was warranted and ordered. The patient WBC count is predominantly lymphocytes and has been as high as 35,000 this is concerning for either leukemoid reaction or leukemia. Repeat laboratory studies have been ordered. DVT prophylaxis will continue. Upon discharge the patient will need to have follow-up with her primary care physician. The patient has been encouraged to ambulate. 04/20/2021 The patient is a 60-year-old lady who will be retained in hospitalization secondary to her oxygen demands. The patient's white blood cell count has peaked at 29,000 with predominant lymphocytes. I have ordered that a slide be sent for pathological review and results of this are currently pending. I have discussed this with the patient. Repeat laboratory studies have been ordered. She will continue with DVT prophylaxis. I have also recommended and will have case management set up referral to heme oncology for review of her lymphocytosis. The patient has been encouraged to ambulate. Once her oxygen demands have improved she should be appropriate for discharge. For now continue oxygen support to keep her saturations around 92%. - Plan Plan:: COVID-19 Elevated C-reactive protein Hypoxia Acute respiratory failure COVID-19 vaccine series completed Generalized weakness * O2 as needed with goal saturations of 88 to 95% * Consult RT * I-S/Acapella * Remdesivir - day 10/28 * Dexamethasone - day 01/02 (started outpatient) * Famotidine 20 mg twice daily * Zinc supplementation * Prone whenever able * Ambulate around room * Airborne/contact precautions * PT/OT * CM/social work * As needed albuterol MDI * As needed DuoNebs * Daily labs * Every 48 hour D-dimer * Telemetry * Continuous pulse oximetry * Mucinex BID * Tessalon Perles TID PRN for cough Leukocytosis Pneumonia * Leukocytosis may be related to steroid although cannot rule out pneumonia * Blood cultures negative thus far * 2 g daily Rocephin - day 10/28 * 100mg doxycycline BID - day 10/28 * Monitor labs * Other orders as mentioned above Hypokalemia ,resolved * Monitor labs Vitamin D deficiency * Start 5,000 units supplementation daily * PCP follow-up Thrombocytopenia, resolved * Monitor labs * Likely 2/2 COVID as above Hypoalbuminemia * 2/2 COVID above * Medical Receptionist Assistant consultation Code status: Full Code PCP: Dr. Spain DVT prophylaxis: Lovenox Disposition: Patient mated to medical floor for management of COVID-19 pneumonia with possible secondary bacterial pneumonia. Patient failed outpatient treatment for Covid. Likely length of stay 4 to 5 days total pending improvement.
[2021-04-20] MEDS: Albuterol 6.7 GM Inhaler INH PRN (08:53)
[2021-04-20] MEDS: Cholecalciferol (Vitamin D3) 5,000 UNIT Cap PO SCH (09:23)
[2021-04-20] MEDS: guaiFENesin 600 MG Tab.ER PO SCH ×2 (09:23→20:16)
[2021-04-20] MEDS: Zinc Sulfate 220 MG Cap PO SCH (09:23)
[2021-04-20] MEDS: Dexamethasone 4 MG Tab PO SCH (09:23)
[2021-04-20] MEDS: Famotidine 20 MG Tab PO SCH ×2 (09:23→20:16)
[2021-04-20] MEDS: Enoxaparin 40 MG/0.4 ML Syringe SUBCUT SCH (09:24)
[2021-04-20] MEDS: Albuterol/Ipratropium 3.0-0.5 MG/3 ML Neb Soln NEB PRN (19:56)
[2021-04-20] MEDS: Acetaminophen 325 MG Tab PO PRN (20:15)
[2021-04-21] MEDS: guaiFENesin/Dextromethorphan 100-10 MG/5 ML Soln 5 ML Cup PO SCH (06:21)
[2021-04-21 07:23] VITALS: PULSE 72
[2021-04-21] MEDS: Albuterol 6.7 GM Inhaler INH PRN (08:46)
[2021-04-21] MEDS: Enoxaparin 40 MG/0.4 ML Syringe SUBCUT SCH (08:54)
[2021-04-21] MEDS: guaiFENesin 600 MG Tab.ER PO SCH (08:55)
[2021-04-21] MEDS: Cholecalciferol (Vitamin D3) 5,000 UNIT Cap PO SCH (08:55)
[2021-04-21] MEDS: Zinc Sulfate 220 MG Cap PO SCH (08:55)
[2021-04-21] MEDS: Famotidine 20 MG Tab PO SCH (08:55)
[2021-04-21] MEDS: Dexamethasone 4 MG Tab PO SCH (08:55)
--- NOTE | 2021-04-21 09:07 | CR ---
Chest: Frontal view of the chest was obtained. Comparison: Prior chest x-ray on 04/17/21. Patchy areas of increased density are seen on both sides of the chest. Findings have slightly worsened from previous exam. Heart size is within normal limits. Tortuous thoracic aorta is seen. Bony structures show nothing acute. Prior right shoulder surgery is noted. Impression: 1. Findings are suspicious for mild worsening of bilateral COVID pneumonia. Please correlate with patient's symptoms. Diagnostic code #3
[2021-04-21 09:39] VITALS: BP 123/77
--- NOTE | 2021-04-21 11:37 | PCM.DCSUM1 ---
<Zaid Guaman - Last Filed: 04/21/21 11:53> Discharge Summary - Hospital Course HPI Initial Comments: This is a 60-year-old female who presents to our ED in the very script artist hours of 04/15/2021 with continued Covid symptoms. She had been seen in the ED on 04/12/2021 for Covid and was sent home with steroids, albuterol MDI, Zofran for nausea and incentive spirometry. For the patient's symptoms began on 04/09/2021 and she tested positive on 04/10/2021. She reportedly completed her Pfizer vaccination series for Covid pneumonia. On her prior visit she was noting significant nausea and vomiting, which she states has improved. She is now complaining of intermittent shortness of breath. Per the ED note saturations were okay on arrival however when the patient fell asleep in the room she was noted to have saturations in the upper 80s. In the ED twelve-lead EKG is obtained showing a sinus rhythm with a RSR noted in V1/normal variant. Temp is 37 C. Pulse 101. Respirations 18. Blood pressure 122/73. Pulse ox 94%. Labs are obtained showing a leukocytosis of 17.27. Hemoglobin is 12.2. Hematocrit 37.1. She is macrocytic. Platelets are low at 149,000. Neutrophils are low at 31.3%. Lymphocytes are high at 64.6%. D-dimer 0.48. Sodium is 134. Potassium 3.4. Chloride 99. Carbon dioxide 30. Anion gap 8.4. BUN is 14. Creatinine 0.9. GFR greater than 60. Glucose 113. Calcium 10.2. Bilirubin 0.5. AST is 21, ALT 26, alkaline phosphatase 59. LDH is 158. Troponin less than 0.017. CRP is elevated at 15.9. Protein is 6.4. Albumin is low at 2.9. Ferritin is 1361. Chest x-ray is obtained and interpreted by Dr. Gastelum, radiologist as "1. Stable area of probable Covid pneumonia within both lungs. 2. Slight increased atelectasis within the right midlung. 3. Other findings as noted above which are chronic." Provider attempted to wean patient off oxygen but was unable. Given her elevated white count she started on Rocephin and doxycycline. She is also given dexamethasone and remdesivir for her Covid symptoms. Patient subsequently admitted to the hospital inpatient on telemetry for management of her COVID-19 pneumonia. She carries a history of PE secondary to an accident. Recurrent bronchitis, GERD, chronic abdominal pain, anemia, status post vena cava filter placed in 2001. She is a full code. Her PCP is Dr. Spain. Diagnosis: Stroke: No - Discharge Data Discharge Date: 04/21/21 (Admit date:) Discharge Disposition: Home, Self-Care 01 Condition: Good - Referral to Home Health Primary Care Physician: Enmanuel Spain MD - Discharge Diagnosis/Problem(s) (1) Leukocytosis SNOMED Code(s): 166451227, 345235144 ICD Code: D72.829 - ELEVATED WHITE BLOOD CELL COUNT, UNSPECIFIED Status: Acute Priority: High Current Visit: Yes Qualifiers: Leukocytosis type: lymphocytosis Qualified Code(s): D72.820 - Lymphocytosis (symptomatic) (2) Elevated C-reactive protein SNOMED Code(s): 382775724832869 ICD Code: R79.82 - ELEVATED C-REACTIVE PROTEIN (CRP) Status: Acute Priority: High Current Visit: Yes (3) Hypokalemia SNOMED Code(s): 54183208 ICD Code: E87.6 - HYPOKALEMIA Status: Resolved Priority: High Current Visit: Yes (4) Hypoxia SNOMED Code(s): 119774405 ICD Code: R09.02 - HYPOXEMIA Status: Acute Priority: High Current Visit: Yes (5) Acute respiratory failure SNOMED Code(s): 93141179 ICD Code: J96.00 - ACUTE RESPIRATORY FAILURE, UNSP W HYPOXIA OR HYPERCAPNIA Status: Acute Priority: High Current Visit: Yes Qualifiers: Respiratory failure complication: hypoxia Qualified Code(s): J96.01 - Acute respiratory failure with hypoxia (6) COVID-19 SNOMED Code(s): 146901153 ICD Code: U07.1 - COVID-19 Status: Acute Priority: High Current Visit: Yes (7) Pneumonia SNOMED Code(s): 566326813 ICD Code: J18.9 - PNEUMONIA, UNSPECIFIED ORGANISM Status: Acute Priority: High Current Visit: Yes Qualifiers: Pneumonia type: due to unspecified organism Laterality: bilateral Lung location: unspecified part of lung Qualified Code(s): J18.9 - Pneumonia, unspecified organism (8) Thrombocytopenia SNOMED Code(s): 351610856 ICD Code: D69.6 - THROMBOCYTOPENIA, UNSPECIFIED Status: Resolved Priority: Medium Current Visit: Yes (9) Hypoalbuminemia SNOMED Code(s): 251764420 ICD Code: E88.09 - OTH DISORDERS OF PLASMA-PROTEIN METABOLISM, NEC Status: Acute Priority: Medium Current Visit: Yes (10) COVID-19 vaccine series completed SNOMED Code(s): 285737120, 206980210 ICD Code: Z92.29 - PERSONAL HISTORY OF OTHER DRUG THERAPY Status: Chronic Priority: High Current Visit: Yes (11) Generalized weakness SNOMED Code(s): 84812758 ICD Code: R53.1 - WEAKNESS Status: Acute Priority: High Current Visit: Yes (12) Vitamin D deficiency SNOMED Code(s): 04328675 ICD Code: E55.9 - VITAMIN D DEFICIENCY, UNSPECIFIED Status: Acute Priority: Medium Current Visit: Yes - Patient Summary/Data Consults: Consultations 04/15/21 08:44 Consult to Case Management/Tin Pourer [CONS] Routine 04/15/21 08:46 OT Evaluation and Treatment [CONS] Routine PT Evaluation and Treatment [CONS] Routine Respiratory Care Assess and Treatment [CONS] Routine 04/15/21 09:18 Consult to Principal Clerk [CONS] Routine Labs Pending at D/C: WBC differential pending Recommended Follow-up Testing/Procedures: Follow-up with primary care provider within 7 to 10 days of discharge, sooner if needed. * Recommend repeat CBC, CMP, and magnesium in follow-up. Consider repeat chest x-ray. * Patient noted to have leukocytosis with a WBC up into the mid 40s. Lymphocytes noted to be elevated. Recommending hematology as below. * Patient discharged on 1 L of oxygen continuous and 3 L with activity. * Patient directed to check pulse oximetry readings twice daily and record these in a journal. Please review this journal and adjust oxygen accordingly. * Patient discharged on 3 more days of 6 mg dexamethasone steroid taper * Patient completed remdesivir, Rocephin, and azithromycin treatment here for COVID-19 Recommend outpatient hematology/oncology follow-up due to leukocytosis with elevated lymphocytes. Does have family history of leukemia. Hospital Course: This is a 60-year-old female who presented to ED on 04/15/2021 with continued COVID-19 symptoms. 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 She was seen in our ED on 04/12/2021 and sent home with steroids, albuterol MDI, Zofran, and incentive spirometry. She reportedly completed the [employer] vaccination series for Covid pneumonia. Chest x-ray showed probable Covid pneumonia in both lungs and increased atelectasis. She was requiring oxygen in the ED and this was unable to be weaned off. She was therefore admitted to the floor for continued treatment of her COVID-19 sym ptoms. On the floor vitamin D was noted to be low and was supplemented. Procalcitonin was checked and was 0.12. She was receiving remdesivir and dexamethasone. She was also receiving azithromycin and Rocephin due to her leukocytosis and concerns over secondary bacterial infection. At her worst she was requiring and she did bounce around quite a bit with her demand. She will be discharged on 1 L of oxygen at all times and 3 L with activity. She was proning and utilizing her incentive spirometry and Acapella. Repeat chest x-ray was obtained on the floor which showed stable to improving bilateral infiltrates consistent with COVID-19 pneumonia. As noted while here patient's WBC was elevated, as high as 45. These were pro dominantly lymphocytes which is concerning for either leukemoid reaction or leukemia. Pathology review of the smear was ordered. She does have a family history of leukemia. Recommend patient follow-up with hematology/oncology in the near future. In the meantime she will be discharged on an albuterol MDI and 3 more days of 6 mg p.o. dexamethasone. She completed her antibiotics and remdesivir as noted. Should be prescribed as needed 3 times daily Robitussin-DM for cough and her Tessalon Perles from prior were continued. Recommend she continue to prone whenever able. Recommend she continue I-S and Acapella for 2 more weeks or until symptoms resolve. She was noted to be thrombopenia on admission and this has resolved. She will be prescribed vitamin D supplement as she was noted to be low while here. She will also be prescribed zinc supplementation. Overall she is done quite well. She was advised to continue to quarantine/isolate for a total of 20 days from symptom onset. Discharged home today on oxygen as noted prior. - Patient Instructions Diet: Usual Diet as Tolerated Activity: As Tolerated Driving: Do Not Drive (Until feeling better ) Showering/Bathing: May Shower Notify Provider of: Fever, Increased Pain, Nausea and/or Vomiting Other/Special Instructions: Follow-up with primary care provider within 7 to 10 days of discharge, sooner if needed. Follow-up with hematology/oncology as we discussed, at next available. You were started on a baby aspirin as one of your labs indicated you may be at risk for blood clots. You may discuss this with your primary care provider, as you will likely not need to be on this long-term. You should continue taking your 6 mg dose of dexamethasone, which is a steroid, for 3 more days. Your last dose should be on 04/24/2021. Continue to utilize your albuterol inhaler as needed for wheezing and shortness of breath. You may take 2 puffs with this every 2 hours. Some studies have shown that zinc may help patients with Covid. We have put you on zinc supplementation at discharge. Please follow-up with your primary care provider regarding this in the future. Take your pulse oximetry reading twice a day and recorded in a journal. Bring this journal with to all medical appointments. Please wear your oxygen as directed. You should continue to wear 1 L at all times and 3L with activity. You should continue to isolate/quarantine for a total of 20 days from symptom onset. You will likely be contacted by a hogshead wrecker from the [facility]. Follow their directions. Resume home medications as directed. Continue to utilize her incentive spirometry (clear/blue device you inhale through) and Acapella (green tube you blow through) for 1 to 2 weeks or until symptoms resolve. You were given Robitussin-DM to take as needed for cough. You can resume your Tessalon Perles as needed for cough as well. You may take piyg-acl-abwcmdx cough medicine also. Just be aware Robitussin-DM contains dextromethorphan and guaifenesin and you should avoid this as there are limits on how much of this you should take in a day. Should symptoms return or worsen contact your primary care provider or return to the emergency room. - Discharge Plan *PRESCRIPTION DRUG MONITORING PROGRAM REVIEWED*: No *COPY OF PRESCRIPTION DRUG MONITORING REPORT IN PATIENT NICOLE: No Prescriptions/Med Rec: Aspirin 81 mg PO DAILY #20 tab.chew guaiFENesin [Mucinex] 600 mg PO BID #8 tab.er Albuterol [Proventil HFA] 2 puff INH Q2H PRN #1 inhaler PRN Reason: SOB/Wheezing Dextromethorphan/guaiFENesin [Robitussin DM] 10 ml PO TID PRN #1 bottle PRN Reason: Cough Cholecalciferol (Vitamin D3) [Vitamin D3] 5,000 unit PO DAILY #20 cap Zinc Sulfate [Zincate] 220 mg PO DAILY #20 cap Home Medications: Home Meds Benzonatate [Tessalon Perle] 100 mg PO TID PRN #12 capsule 04/12/21 [Rx] Ondansetron [Zofran ODT] 4 mg PO Q6H PRN #12 tab.dis 04/12/21 [Rx] . [Unable To Obtain] 1 dose PO DAILY 04/15/21 [History] Non-Formulary Medication [NF Drug] 1 tab PO DAILY 04/15/21 [History] Non-Formulary Medication [NF Drug] 1 tab PO DAILY 04/15/21 [History] Albuterol [Proventil HFA] 2 puff INH Q2H PRN #1 inhaler 04/21/21 [Rx] Aspirin 81 mg PO DAILY #20 tab.chew 04/21/21 [Rx] Cholecalciferol (Vitamin D3) [Vitamin D3] 5,000 unit PO DAILY #20 cap 04/21/21 [Rx] Dextromethorphan/guaiFENesin [Robitussin DM] 10 ml PO TID PRN #1 bottle 04/21/21 [Rx] Zinc Sulfate [Zincate] 220 mg PO DAILY #20 cap 04/21/21 [Rx] dexAMETHasone [Dexamethasone] 6 mg PO DAILY #3 tablet 04/21/21 [Rx] guaiFENesin [Mucinex] 600 mg PO BID #8 tab.er 04/21/21 [Rx] Oxygen Therapy Mode: Nasal Cannula Oxygen Flow Rate (L/min): 1 (3L with activity) Maintain SPO2% less than: 95 Maintain SpO2% greater than: 88 Patient Handouts: COVID-19 Frequently Asked Questions, COVID-19, 10 Things You Can Do to Manage Your COVID-19 Symptoms at Home - [facility] (02/07/2021) Forms: ED Department Discharge Referrals: Enmanuel Spain MD [Primary Care Provider] - 04/22/21 4:30 pm (please arrive 15 minutes prior to the appointment to register) - Discharge Summary/Plan Comment DC Time >30 min.: Yes Total # of Minutes for Discharge Time: 45 - General Info Date of Service: 04/21/21 Admission Dx/Problem (Free Text: Admission Diagnosis/Problem Admission Diagnosis/Problem Hypoxia Functional Status: Reports: Pain Controlled, Tolerating Diet, Ambulating, Urinating, Incentive Spirometry, Other (Acapella ). Denies: New Symptoms - Review of Systems General: Reports: No Symptoms, Weakness, Fatigue. Denies: Fever, Malaise, Chills HEENT: Reports: No Symptoms. Denies: Headaches, Sore Throat Pulmonary: Reports: Shortness of Breath, Cough, Sputum. Denies: Pleuritic Chest Pain, Wheezing Cardiovascular: Reports: No Symptoms, Dyspnea on Exertion. Denies: Palpitations, Edema Gastrointestinal: Reports: No Symptoms. Denies: Abdominal Pain, Constipation, Diarrhea, Nausea, Vomiting Genitourinary: Reports: No Symptoms. Denies: Pain Musculoskeletal: Reports: No Symptoms Skin: Reports: No Symptoms. Denies: Cyanosis Neurological: Reports: No Symptoms. Denies: Confusion, Dizziness, Headache, Numbness, Seizure, Syncope, Tingling, Difficulty Walking, Weakness, Gait Disturbance Psychiatric: Reports: No Symptoms - Patient Data Vitals - Most Recent: Last Vital Signs Temp 97.9 F 04/21/21 09:16 Pulse 72 04/21/21 09:16 Resp 18 04/21/21 09:16 BP 123/77 04/21/21 09:16 Pulse Ox 88 L 04/21/21 09:16 Weight - Most Recent: 93.712 kg I&O - Last 24 hours: Intake & Output 04/20/21 04/21/21 04/21/21 22:59 06:59 14:59 Intake Total 1370 400 Balance 1370 400 Lab Results - Last 24 hrs: Laboratory Results - last 24 hr 04/16/21 04/19/21 04/19/21 Range/Units 04:52 06:44 06:44 WBC (3.98-10.04) K/mm3 RBC (3.98-5.22) M/mm3 Hgb (11.2-15.7) gm/dl Hct (34.1-44.9) % MCV (79.4-94.8) fl MCH (25.6-32.2) pg MCHC (32.2-35.5) g/dl RDW Std Deviation (36.4-46.3) fL Plt Count (182-369) K/mm3 MPV (9.4-12.3) fl Neut % (Auto) (34.0-71.1) % Lymph % (Auto) (19.3-51.7) % [place] % (Auto) (4.7-12.5) % Eos % (Auto) (0.7-5.8) Baso % (Auto) (0.1-1.2) % Neut # (Auto) (1.56-6.13) K/mm3 Lymph # (Auto) (1.18-3.74) K/mm3 [place] # (Auto) (0.24-0.36) K/mm3 Eos # (Auto) (0.04-0.36) K/mm3 Baso # (Auto) (0.01-0.08) K/mm3 Neutrophils % (Manual) 30 % Band Neuts % (Manual) 0 % Lymphocytes % (Manual) 69 % Monocytes % (Manual) 1 % Eosinophils % (Manual) 0 % Basophils % (Manual) 0 % Manual Slide Review Abnormal smear RBC/WBC/PLT Morphology Abnormal (Normal) Vacuolated Neuts Seen Smudge Cells Seen (Absent) Toxic Granulation Seen (Absent) Platelet Estimate Adequate Smear Path Review Path rpt D-Dimer, Quantitative (0.19-0.50) mg/L Sodium (136-145) mEq/L Potassium (3.5-5.1) mEq/L Chloride (98-107) mEq/L Carbon Dioxide (21-32) mEq/L Anion Gap (5-15) BUN (7-18) mg/dL Creatinine (0.55-1.02) mg/dL Est Cr Clr Drug Dosing mL/min Estimated GFR (MDRD) (>60) mL/min BUN/Creatinine Ratio (14-18) Glucose (70-99) mg/dL Calcium (8.5-10.1) mg/dL 09/04/21/21 04/21/21 Range/Units 05:49 05:49 05:49 WBC 45.36 H (3.98-10.04) K/mm3 RBC 4.32 (3.98-5.22) M/mm3 Hgb 13.0 (11.2-15.7) gm/dl Hct 41.5 (34.1-44.9) % MCV 96.1 H (79.4-94.8) fl MCH 30.1 (25.6-32.2) pg MCHC 31.3 L (32.2-35.5) g/dl RDW Std Deviation 45.3 (36.4-46.3) fL Plt Count 348 (182-369) K/mm3 MPV 9.5 (9.4-12.3) fl Neut % (Auto) 19.9 L (34.0-71.1) % Lymph % (Auto) 77.8 H (19.3-51.7) % [place] % (Auto) 1.9 L (4.7-12.5) % Eos % (Auto) 0 L (0.7-5.8) Baso % (Auto) 0.1 (0.1-1.2) % Neut # (Auto) 9.02 H (1.56-6.13) K/mm3 Lymph # (Auto) 35.29 H (1.18-3.74) K/mm3 [place] # (Auto) 0.84 H (0.24-0.36) K/mm3 Eos # (Auto) 0.01 L (0.04-0.36) K/mm3 Baso # (Auto) 0.06 (0.01-0.08) K/mm3 Neutrophils % (Manual) % Band Neuts % (Manual) % Lymphocytes % (Manual) % Monocytes % (Manual) % Eosinophils % (Manual) % Basophils % (Manual) % Manual Slide Review Abnormal smear RBC/WBC/PLT Morphology (Normal) Vacuolated Neuts Smudge Cells (Absent) Toxic Granulation (Absent) Platelet Estimate Smear Path Review D-Dimer, Quantitative 0.53 H (0.19-0.50) mg/L Sodium 138 (136-145) mEq/L Potassium 4.6 (3.5-5.1) mEq/L Chloride 103 (98-107) mEq/L Carbon Dioxide 27 (21-32) mEq/L Anion Gap 12.6 (5-15) BUN 17 (7-18) mg/dL Creatinine 0.7 (0.55-1.02) mg/dL Est Cr Clr Drug Dosing 72.88 mL/min Estimated GFR (MDRD) > 60 (>60) mL/min BUN/Creatinine Ratio 24.3 H (14-18) Glucose 123 H (70-99) mg/dL Calcium 10.8 H (8.5-10.1) mg/dL MILLA Results - Last 24 hrs: Microbiology 04/15/21 07:30 Blood Culture - Final Blood - Venous - Lab Draw 04/15/21 07:23 Blood Culture - Final Blood - Venous Med Orders - Current: Current Medications Acetaminophen (Acetaminophen 325 Mg Tab) 650 mg PO Q4H PRN PRN Reason: Pain (Mild 1-3)/fever Last Admin: 04/20/21 20:15 Dose: 650 mg Documented by: Albuterol (Albuterol 6.7 Gm Inhaler) 0 gm INH Q2H PRN PRN Reason: SOB/Wheezing Last Admin: 04/21/21 08:46 Dose: 2 puff Documented by: Albuterol/Ipratropium (Albuterol/Ipratropium 3.0-0.5 Mg/3 Ml Neb Soln) 3 ml NEB QIDRT PRN PRN Reason: Shortness Of Breath/wheezing Last Admin: 04/20/21 19:56 Dose: 3 ml Documented by: Benzonatate (Benzonatate 100 Mg Cap) 100 mg PO TID PRN PRN Reason: Cough Cholecalciferol (Cholecalciferol (Vitamin D3) 5,000 Unit Cap) 5,000 unit PO DAILY [facility] Last Admin: 04/21/21 08:55 Dose: 5,000 unit Documented by: Dexamethasone (Dexamethasone 4 Mg Tab) 6 mg PO DAILY MACK[facility]IE Stop: 04/24/21 09:01 Last Admin: 04/21/21 08:55 Dose: 6 mg Documented by: Docusate Sodium (Docusate Sodium 100 Mg Cap) 100 mg PO Q12H PRN PRN Reason: Constipation Enoxaparin Sodium (Enoxaparin 40 Mg/0.4 Ml Syringe) 40 mg SUBCUT DAILY [facility] Last Admin: 04/21/21 08:54 Dose: 40 mg Documented by: Famotidine (Famotidine 20 Mg Tab) 20 mg PO BID [facility] Last Admin: 04/21/21 08:55 Dose: 20 mg Documented by: Guaifenesin (Guaifenesin 600 Mg Tab.Er) 600 mg PO BID [facility] Last Admin: 04/21/21 08:55 Dose: 600 mg Documented by: Guaifenesin/Phenylephrine HCl (Guaifenesin/Dextromethorphan 100-10 Mg/5 Ml Soln 5 Ml Cup) 10 ml PO TID@0700,1400,2100 [facility] Last Admin: 04/21/21 06:21 Dose: 10 ml Documented by: Ondansetron HCl (Ondansetron 4 Mg/2 Ml Sdv) 4 mg IVPUSH Q6H PRN PRN Reason: Nausea/Vomiting Witch Jacy (Witch Jacy Medicated Pads 40/Jar) 1 pad TOP ASDIRECTED PRN PRN Reason: Hemorrhoids Last Admin: 04/19/21 19:21 Dose: 1 applic Documented by: Zinc Sulfate (Zinc Sulfate 220 Mg Cap) 220 mg PO DAILY [facility] Last Admin: 04/21/21 08:55 Dose: 220 mg Documented by: Discontinued Medications Dexamethasone (Dexamethasone 4 Mg/Ml 5 Ml Mdv) 6 mg IV ONETIME ONE Stop: 04/15/21 06:54 Last Admin: 04/15/21 08:00 Dose: 6 mg Documented by: Dexamethasone (Dexamethasone 4 Mg Tab) 6 mg PO DAILY [facility] Stop: 04/24/21 09:01 Doxycycline Hyclate (Doxycycline 100 Mg Cap) 100 mg PO ONETIME ONE Stop: 04/15/21 06:54 Last Admin: 04/15/21 07:54 Dose: 100 mg Documented by: Ceftriaxone Sodium 2 gm/ (Sodium Chloride) 100 mls @ 200 mls/hr IV Q24H [facility] Last Admin: 04/15/21 08:23 Dose: 200 mls/hr Documented by: Remdesivir 200 mg/ Sodium (Chloride) 250 mls @ 250 mls/hr IV ONETIME ONE Stop: 04/15/21 08:29 Last Admin: 04/15/21 08:53 Dose: 250 mls/hr Documented by: Ceftriaxone Sodium 2 gm/ (Sodium Chloride) 100 mls @ 200 mls/hr IV Q24H [facility] Stop: 04/20/21 07:29 Azithromycin 500 mg/ Sodium (Chloride) 250 mls @ 250 mls/hr IV Q24H [facility] Stop: 04/17/21 09:59 Last Admin: 04/15/21 23:52 Dose: Not Given Documented by: Remdesivir 100 mg/ Sodium (Chloride) 100 mls @ 100 mls/hr IV Q24H [facility] Stop: 04/19/21 08:29 Last Admin: 04/19/21 07:41 Dose: 100 mls/hr Documented by: Doxycycline Hyclate 100 mg/ (Sodium Chloride) 100 mls @ 100 mls/hr IV Q12HR [facility] Stop: 04/19/21 21:59 Last Admin: 04/19/21 20:52 Dose: 100 mls/hr Documented by: Ceftriaxone Sodium 2 gm/ (Sodium Chloride) 100 mls @ 200 mls/hr IV Q24H [facility] Stop: 04/19/21 07:29 Last Admin: 04/19/21 07:03 Dose: 200 mls/hr Documented by: Ondansetron HCl (Ondansetron 4 Mg/2 Ml Sdv) 4 mg IVPUSH Q4H PRN PRN Reason: Nausea Potassium Chloride (Potassium Chloride 20 Meq Tab.Er) 40 meq PO ONETIME ONE Stop: 04/15/21 08:57 Last Admin: 04/15/21 09:58 Dose: 40 meq Documented by: - Exam Quality Assessment: Reports: Supplemental Oxygen (1L), DVT Prophylaxis. Denies: Urine Catheter General: Reports: Alert, Oriented, Cooperative, No Acute Distress HEENT: Reports: Pupils Equal, Pupils Reactive, Mucous Membr. Moist/[place] Neck: Reports: Supple, Trachea Midline Lungs: Reports: Normal Respiratory Effort, Decreased Breath Sounds, Crackles, Wheezing (end expiratory ) Cardiovascular: Reports: Regular Rate, Regular Rhythm GI/Abdominal Exam: Normal Bowel Sounds, Soft, Non-Tender, No Distention (Female) Exam: Deferred Rectal (Female) Exam: Deferred Back Exam: Reports: Normal Inspection, Full Range of Motion Extremities: Normal Inspection, Normal Range of Motion, Non-Tender, No Pedal Edema, Normal Capillary Refill Skin: Reports: Warm, Dry, Intact Neurological: Reports: No New Focal Deficit Psy/Mental Status: Reports: Alert, Normal Affect, Normal Mood <Bbo Arroyo - Last Filed: 04/21/21 13:32> Discharge Summary - Referral to Home Health Primary Care Physician: Enmanuel Spain MD - Discharge Diagnosis/Problem(s) (1) 2019 novel coronavirus-infected pneumonia (NCIP) SNOMED Code(s): 256922936043380388 ICD Code: U07.1 - COVID-19; J12.82 - PNEUMONIA DUE TO CORONAVIRUS DISEASE 2019 Status: Acute Priority: High Current Visit: Yes (2) Acute respiratory failure SNOMED Code(s): 71405174 ICD Code: J96.00 - ACUTE RESPIRATORY FAILURE, UNSP W HYPOXIA OR HYPERCAPNIA Status: Acute Priority: High Current Visit: Yes Qualifiers: Respiratory failure complication: hypoxia Qualified Code(s): J96.01 - Acute respiratory failure with hypoxia (3) COVID-19 SNOMED Code(s): 175561341 ICD Code: U07.1 - COVID-19 Status: Acute Priority: High Current Visit: Yes (4) Leukocytosis SNOMED Code(s): 416771341, 580365438 ICD Code: D72.829 - ELEVATED WHITE BLOOD CELL COUNT, UNSPECIFIED Status: Acute Priority: High Current Visit: Yes Qualifiers: Leukocytosis type: lymphocytosis Qualified Code(s): D72.820 - Lymphocytosis (symptomatic) - Patient Summary/Data Consults: Consultations 04/15/21 08:44 Consult to Case Management/Tin Pourer [CONS] Routine 04/15/21 08:46 OT Evaluation and Treatment [CONS] Routine PT Evaluation and Treatment [CONS] Routine Respiratory Care Assess and Treatment [CONS] Routine 04/15/21 09:18 Consult to Principal Clerk [CONS] Routine - Patient Data Vitals - Most Recent: Last Vital Signs Temp 36.6 C 04/21/21 09:16 Pulse 72 04/21/21 09:16 Resp 18 04/21/21 09:16 BP 123/77 04/21/21 09:16 Pulse Ox 88 L 04/21/21 09:16 I&O - Last 24 hours: Intake & Output 04/20/21 04/21/21 04/21/21 22:59 06:59 14:59 Intake Total 1370 400 Balance 1370 400 Lab Results - Last 24 hrs: Laboratory Results - last 24 hr 04/16/21 04/19/21 04/19/21 Range/Units 04:52 06:44 06:44 WBC (3.98-10.04) K/mm3 RBC (3.98-5.22) M/mm3 Hgb (11.2-15.7) gm/dl Hct (34.1-44.9) % MCV (79.4-94.8) fl MCH (25.6-32.2) pg MCHC (32.2-35.5) g/dl RDW Std Deviation (36.4-46.3) fL Plt Count (182-369) K/mm3 MPV (9.4-12.3) fl Neut % (Auto) (34.0-71.1) % Lymph % (Auto) (19.3-51.7) % [place] % (Auto) (4.7-12.5) % Eos % (Auto) (0.7-5.8) Baso % (Auto) (0.1-1.2) % Neut # (Auto) (1.56-6.13) K/mm3 Lymph # (Auto) (1.18-3.74) K/mm3 [place] # (Auto) (0.24-0.36) K/mm3 Eos # (Auto) (0.04-0.36) K/mm3 Baso # (Auto) (0.01-0.08) K/mm3 Neutrophils % (Manual) 30 % Band Neuts % (Manual) 0 % Lymphocytes % (Manual) 69 % Monocytes % (Manual) 1 % Eosinophils % (Manual) 0 % Basophils % (Manual) 0 % Manual Slide Review Abnormal smear RBC/WBC/PLT Morphology Abnormal (Normal) Vacuolated Neuts Seen Smudge Cells Seen (Absent) Toxic Granulation Seen (Absent) Platelet Estimate Adequate Smear Path Review Path rpt D-Dimer, Quantitative (0.19-0.50) mg/L Sodium (136-145) mEq/L Potassium (3.5-5.1) mEq/L Chloride (98-107) mEq/L Carbon Dioxide (21-32) mEq/L Anion Gap (5-15) BUN (7-18) mg/dL Creatinine (0.55-1.02) mg/dL Est Cr Clr Drug Dosing mL/min Estimated GFR (MDRD) (>60) mL/min BUN/Creatinine Ratio (14-18) Glucose (70-99) mg/dL Calcium (8.5-10.1) mg/dL 04/21/21 04/21/21 04/21/21 Range/Units 05:49 05:49 05:49 WBC 45.36 H (3.98-10.04) K/mm3 RBC 4.32 (3.98-5.22) M/mm3 Hgb 13.0 (11.2-15.7) gm/dl Hct 41.5 (34.1-44.9) % MCV 96.1 H (79.4-94.8) fl MCH 30.1 (25.6-32.2) pg MCHC 31.3 L (32.2-35.5) g/dl RDW Std Deviation 45.3 (36.4-46.3) fL Plt Count 348 (182-369) K/mm3 MPV 9.5 (9.4-12.3) fl Neut % (Auto) 19.9 L (34.0-71.1) % Lymph % (Auto) 77.8 H (19.3-51.7) % [place] % (Auto) 1.9 L (4.7-12.5) % Eos % (Auto) 0 L (0.7-5.8) Baso % (Auto) 0.1 (0.1-1.2) % Neut # (Auto) 9.02 H (1.56-6.13) K/mm3 Lymph # (Auto) 35.29 H (1.18-3.74) K/mm3 [place] # (Auto) 0.84 H (0.24-0.36) K/mm3 Eos # (Auto) 0.01 L (0.04-0.36) K/mm3 Baso # (Auto) 0.06 (0.01-0.08) K/mm3 Neutrophils % (Manual) % Band Neuts % (Manual) % Lymphocytes % (Manual) % Monocytes % (Manual) % Eosinophils % (Manual) % Basophils % (Manual) % Manual Slide Review Abnormal smear RBC/WBC/PLT Morphology (Normal) Vacuolated Neuts Smudge Cells (Absent) Toxic Granulation (Absent) Platelet Estimate Smear Path Review D-Dimer, Quantitative 0.53 H (0.19-0.50) mg/L Sodium 138 (136-145) mEq/L Potassium 4.6 (3.5-5.1) mEq/L Chloride 103 (98-107) mEq/L Carbon Dioxide 27 (21-32) mEq/L Anion Gap 12.6 (5-15) BUN 17 (7-18) mg/dL Creatinine 0.7 (0.55-1.02) mg/dL Est Cr Clr Drug Dosing 72.88 mL/min Estimated GFR (MDRD) > 60 (>60) mL/min BUN/Creatinine Ratio 24.3 H (14-18) Glucose 123 H (70-99) mg/dL Calcium 10.8 H (8.5-10.1) mg/dL MILLA Results - Last 24 hrs: Microbiology 04/15/21 07:30 Blood Culture - Final Blood - Venous - Lab Draw 04/15/21 07:23 Blood Culture - Final Blood - Venous Med Orders - Current: Current Medications Acetaminophen (Acetaminophen 325 Mg Tab) 650 mg PO Q4H PRN PRN Reason: Pain (Mild 1-3)/fever Last Admin: 04/20/21 20:15 Dose: 650 mg Documented by: Albuterol (Albuterol 6.7 Gm Inhaler) 0 gm INH Q2H PRN PRN Reason: SOB/Wheezing Last Admin: 04/21/21 08:46 Dose: 2 puff Documented by: Albuterol/Ipratropium (Albuterol/Ipratropium 3.0-0.5 Mg/3 Ml Neb Soln) 3 ml NEB QIDRT PRN PRN Reason: Shortness Of Breath/wheezing Last Admin: 04/20/21 19:56 Dose: 3 ml Documented by: Benzonatate (Benzonatate 100 Mg Cap) 100 mg PO TID PRN PRN Reason: Cough Cholecalciferol (Cholecalciferol (Vitamin D3) 5,000 Unit Cap) 5,000 unit PO DAILY [facility] Last Admin: 04/21/21 08:55 Dose: 5,000 unit Documented by: Dexamethasone (Dexamethasone 4 Mg Tab) 6 mg PO DAILY [facility] Stop: 04/24/21 09:01 Last Admin: 04/21/21 08:55 Dose: 6 mg Documented by: Docusate Sodium (Docusate Sodium 100 Mg Cap) 100 mg PO Q12H PRN PRN Reason: Constipation Enoxaparin Sodium (Enoxaparin 40 Mg/0.4 Ml Syringe) 40 mg SUBCUT DAILY [facility] Last Admin: 04/21/21 08:54 Dose: 40 mg Documented by: Famotidine (Famotidine 20 Mg Tab) 20 mg PO BID [facility] Last Admin: 04/21/21 08:55 Dose: 20 mg Documented by: Guaifenesin (Guaifenesin 600 Mg Tab.Er) 600 mg PO BID [facility] Last Admin: 04/21/21 08:55 Dose: 600 mg Documented by: Guaifenesin/Phenylephrine HCl (Guaifenesin/Dextromethorphan 100-10 Mg/5 Ml Soln 5 Ml Cup) 10 ml PO TID@0700,1400,2100 [facility] Last Admin: 04/21/21 06:21 Dose: 10 ml Documented by: Ondansetron HCl (Ondansetron 4 Mg/2 Ml Sdv) 4 mg IVPUSH Q6H PRN PRN Reason: Nausea/Vomiting Witch Jacy (Witch Jacy Medicated Pads 40/Jar) 1 pad TOP ASDIRECTED PRN PRN Reason: Hemorrhoids Last Admin: 04/19/21 19:21 Dose: 1 applic Documented by: Zinc Sulfate (Zinc Sulfate 220 Mg Cap) 220 mg PO DAILY [facility] Last Admin: 04/21/21 08:55 Dose: 220 mg Documented by: Discontinued Medications Dexamethasone (Dexamethasone 4 Mg/Ml 5 Ml Mdv) 6 mg IV ONETIME ONE Stop: 04/15/21 06:54 Last Admin: 04/15/21 08:00 Dose: 6 mg Documented by: Dexamethasone (Dexamethasone 4 Mg Tab) 6 mg PO DAILY [facility] Stop: 04/24/21 09:01 Doxycycline Hyclate (Doxycycline 100 Mg Cap) 100 mg PO ONETIME ONE Stop: 04/15/21 06:54 Last Admin: 04/15/21 07:54 Dose: 100 mg Documented by: Ceftriaxone Sodium 2 gm/ (Sodium Chloride) 100 mls @ 200 mls/hr IV Q24H [facility] Last Admin: 04/15/21 08:23 Dose: 200 mls/hr Documented by: Remdesivir 200 mg/ Sodium (Chloride) 250 mls @ 250 mls/hr IV ONETIME ONE Stop: 04/15/21 08:29 Last Admin: 04/15/21 08:53 Dose: 250 mls/hr Documented by: Ceftriaxone Sodium 2 gm/ (Sodium Chloride) 100 mls @ 200 mls/hr IV Q24H [facility] Stop: 04/20/21 07:29 Azithromycin 500 mg/ Sodium (Chloride) 250 mls @ 250 mls/hr IV Q24H [facility] Stop: 04/17/21 09:59 Last Admin: 04/15/21 23:52 Dose: Not Given Documented by: Remdesivir 100 mg/ Sodium (Chloride) 100 mls @ 100 mls/hr IV Q24H [facility] Stop: 04/19/21 08:29 Last Admin: 04/19/21 07:41 Dose: 100 mls/hr Documented by: Doxycycline Hyclate 100 mg/ (Sodium Chloride) 100 mls @ 100 mls/hr IV Q12HR [facility] Stop: 04/19/21 21:59 Last Admin: 04/19/21 20:52 Dose: 100 mls/hr Documented by: Ceftriaxone Sodium 2 gm/ (Sodium Chloride) 100 mls @ 200 mls/hr IV Q24H [facility] Stop: 04/19/21 07:29 Last Admin: 04/19/21 07:03 Dose: 200 mls/hr Documented by: Ondansetron HCl (Ondansetron 4 Mg/2 Ml Sdv) 4 mg IVPUSH Q4H PRN PRN Reason: Nausea Potassium Chloride (Potassium Chloride 20 Meq Tab.Er) 40 meq PO ONETIME ONE Stop: 04/15/21 08:57 Last Admin: 04/15/21 09:58 Dose: 40 meq Documented by: - Free Text/Narrative Note: I have seen and examined the patient independently of Zaid Guaman PA-C. I have discussed the case with him and reviewed and agree with the plan of care as outlined by him. Please see orders.
== END 2021-04-21 13:48 | disposition home or self-care (01) | DRG 177 ==
LOC: JD.ED 21:41 → JD.MS 04-15 08:00 → JD.ED 04-15 08:05
PROVIDERS: ADMIT Internal Medicine; ATTEND Internal Medicine
PROC: 8E0ZXY6 Isolation (ICD-10-PCS; principal; 2021-04-15)
PROC: XW033E5 Introduction of Remdesivir Anti-infective into Peripheral Vein, Percutaneous Approach, New Technology Group 5 (ICD-10-PCS; 2021-04-15)
PROC: 3E0333Z Introduction of Anti-inflammatory into Peripheral Vein, Percutaneous Approach (ICD-10-PCS; 2021-04-15)
PROC: 3E0DX3Z Introduction of Anti-inflammatory into Mouth and Pharynx, External Approach (ICD-10-PCS; 2021-04-16)
DX: U07.1 COVID-19 (principal); J12.82 Pneumonia due to coronavirus disease 2019; J96.01 Acute respiratory failure with hypoxia; E87.6 Hypokalemia; D69.6 Thrombocytopenia, unspecified; E88.09 Other disorders of plasma-protein metabolism, not elsewhere classified; E55.9 Vitamin D deficiency, unspecified; K21.9 Gastro-esophageal reflux disease without esophagitis; D64.9 Anemia, unspecified; D72.820 Lymphocytosis (symptomatic); Z86.711 Personal history of pulmonary embolism; Z79.01 Long term (current) use of anticoagulants; Z88.1 Allergy status to other antibiotic agents; Z86.718 Personal history of other venous thrombosis and embolism; Z98.890 Other specified postprocedural states; Z79.899 Other long term (current) drug therapy
CPT/HCPCS: 36415; 71045; 71045-26; 80048; 80053; 80076; 82306; 82728; 83605; 83615; 83735; 84145; 84484; 85007; 85025; 85027; 85045; 85379; 86140; 87040; 93005; 94640; 94667; 94668; 94762; 96374; 97116-GP; 97161-GP; 99285-25; A9270-GY; J0696; J1100; J1650; J3490; J7050; J7620-GY; J8540

== ENCOUNTER 2021-04-26 09:28 | Emergency (ER) | payer OTHER ==
[2021-04-26 09:49] VITALS: BP 114/72; PULSE 100
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
--- NOTE | 2021-04-27 08:43 | US ---
Right upper extremity venous ultrasound: Duplex and color Doppler evaluation was obtained of the right internal jugular, subclavian, axillary, basilic, brachial, cephalic and ulnar veins. Medial vein within the antecubital region was also evaluated. Findings: There is thrombus being seen within the cephalic vein as well as the median vein within the antecubital space. No other areas of venous thrombosis are seen. Impression: 1. Clot within the right cephalic and median vein. 2. Other portions of the right upper quadrant abdominal ultrasound appear unremarkable. Diagnostic code #3 I agree with preliminary report from [facility], finalized on 04/26/21, 12:55 PM CDT, code 1
== END 2021-04-26 13:53 | disposition home or self-care (01) ==
LOC: JD.ED 09:28
DX: I80.8 Phlebitis and thrombophlebitis of other sites (principal); J44.9 Chronic obstructive pulmonary disease, unspecified; D72.820 Lymphocytosis (symptomatic); Z86.16 Personal history of COVID-19; Z88.1 Allergy status to other antibiotic agents; Z79.01 Long term (current) use of anticoagulants; Z79.82 Long term (current) use of aspirin
CPT/HCPCS: 36415; 80048; 85025; 86140; 93971-26-RT; 93971-RT; 99284-25

== ENCOUNTER 2023-08-14 19:03 | Emergency (ER) | payer OTHER ==
[2023-08-14 21:32] VITALS: BP 113/83; PULSE 86
== END 2023-08-14 21:25 | disposition home or self-care (01) ==
LOC: JD.ED 19:03
DX: M79.604 Pain in right leg (principal); E66.9 Obesity, unspecified; Z86.16 Personal history of COVID-19; Z90.710 Acquired absence of both cervix and uterus; Z88.1 Allergy status to other antibiotic agents; Z79.899 Other long term (current) drug therapy; Z68.38 Body mass index [BMI] 38.0-38.9, adult
CPT/HCPCS: 93971-26-RT; 93971-RT; 99283

== ENCOUNTER 2024-09-16 19:21 | Emergency (ER) | payer OTHER ==
[2024-09-16 19:36] VITALS: BP 143/89; PULSE 69
[2024-09-16] MEDS: Lidocaine 1% 10 ML MDV ONE (20:13)
[2024-09-16] MEDS: Lidocaine 1% 50 ML MDV INJECT STA (20:14)
[2024-09-16] MEDS: Diphtheria,Pertussis(Acell),Tetanus Vaccine 0.5 ML Syringe IM ONE (21:14)
[2024-09-16] MEDS: ceFAZolin 1 GM Vial IM ONE (21:17)
== END 2024-09-16 21:31 | disposition home or self-care (01) ==
LOC: JD.ED 19:21
DX: S61.216A Laceration without foreign body of right little finger without damage to nail, initial encounter (principal); J44.9 Chronic obstructive pulmonary disease, unspecified; E66.9 Obesity, unspecified; Z86.16 Personal history of COVID-19; Z90.710 Acquired absence of both cervix and uterus; Z88.1 Allergy status to other antibiotic agents; Z68.38 Body mass index [BMI] 38.0-38.9, adult; Z23 Encounter for immunization; W01.0XXA Fall on same level from slipping, tripping and stumbling without subsequent striking against object, initial encounter
CPT/HCPCS: 12002; 73140; 90471; 90715; 96372; 99283; J0690; J2003